=== PATIENT | female | born 1930 | race Hispanic/Latino ===

== ENCOUNTER 2016-12-11 19:58 | Inpatient (IN) | payer MEDICARE ==
--- NOTE | 2016-12-11 20:18 | ED PDOC ---
Arrival/HPI - General Chief Complaint: Trauma Time Seen by Provider: 12/11/16 20:01 Historian: Patient - History of Present Illness Narrative History of Present Illness (Text): 12/11/16 20:13 A 86 year old female presents to the emergency department complaining of right lower back pain after fall. Patient reports falling earlier tonight and approximately 1 week ago, she notes episodes of dizziness prior to falls. Patient denies any other injuries, loss of consciousness, head trauma, headache , neck pain, fever, chills, nausea, vomiting, abdominal pain, chest pain, shortness of breath or any other complaints. PMD: Dr. Alston Time/Duration: Prior to Arrival, 1 week Quality: Other Context: Home Past Medical History - Provider Review Nursing Documentation Reviewed: Yes - Infectious Disease Hx of Infectious Diseases: None - Tetanus Immunization Tetanus Immunization: Unknown - Cardiac Hx Cardiac Disorders: Yes Hx Hypertension: Yes - Pulmonary Hx Respiratory Disorders: No - Neurological Hx Neurological Disorder: Yes Hx Dizziness: Yes (Vertigo) Hx Transient Ischemic Attacks (TIA): Yes Hx Vertigo: Yes - HEENT Hx HEENT Disorder: No Hx Blind: No Hx Cataracts: No Hx Deafness: No Hx Difficulty Chewing: No Hx Epistaxis: No Hx Glaucoma: No Hx Macular Degeneration: No - Renal Hx Renal Disorder: No Hx Dialysis: No Hx Kidney Stones: Yes (Lithotripsy and able to pass also.) - Endocrine/Metabolic Hx Endocrine Disorders: Yes Hx Diabetes Mellitus Type 1: Yes Hx Diabetes Mellitus Type 2: Yes Hx Hypothyroidism: Yes - Hematological/Oncological Hx Blood Disorders: Yes Hx Lymphoma: Yes - Integumentary Hx Dermatological Disorder: No - Musculoskeletal/Rheumatological Hx Falls: No - Gastrointestinal Hx Gastrointestinal Disorders: Yes (Hx of Cholecystectomy; Gallstones; Polypectomy; Hemorrhoidectomy; GI Bleed.) Hx Constipation: Yes Hx Diarrhea: Yes Hx Diverticulitis: Yes Hx Gall Bladder Disease: Yes Hx Gastritis: Yes Hx Gastroesophageal Reflux: Yes Hx Hemorrhoids: Yes - Genitourinary/Gynecological Hx Genitourinary Disorders: Yes Other/Comment: FIBROID - Psychiatric Hx Psychophysiologic Disorder: Yes Hx Anxiety: Yes Hx Depression: Yes Hx Panic Disorder: Yes Hx Post Traumatic Stress Disorder: Yes Hx Substance Use: No - Past Surgical History Past Surgical History: No Previous - Surgical History Hx Appendectomy: Yes Hx Cholecystectomy: Yes Hx Hysterectomy: Yes Other/Comment: benign breast cyst, polypectomy, hemorrhoidectomy,quarterized "a blood vessel" as per pt - Anesthesia Hx Anesthesia: Yes Hx Anesthesia Reactions: No Hx Malignant Hyperthermia: No - Suicidal Assessment Feels Threatened In Home Enviroment: No Family/Social History - Physician Review Nursing Documentation Reviewed: Yes Family/Social History: No Known Family HX Smoking Status: Former Smoker Hx Alcohol Use: No Hx Substance Use: No Hx Substance Use Treatment: No Allergies/Home Meds Allergies/Adverse Reactions: Allergies No Known Allergies Allergy (Verified 12/11/16 20:34) Home Medications: Home Meds Medication Instructions Recorded Confirmed Alprazolam 0.5 mg PO TID 08/23/13 12/11/16 Levothyroxine Sodium 0.088 mg PO QAM 08/23/13 12/11/16 Carvedilol 6.25 mg PO BID 12/28/13 12/11/16 Insulin Glargine,Hum.rec.anlog 30 unit SC DAILY 12/28/13 12/11/16 [Lantus] Methylphenidate HCl [Ritalin] 5 mg PO BID 03/18/14 12/11/16 Bupropion HCl [Bupropion Xl] 150 mg PO QAM 04/04/14 12/11/16 Cyanocobalamin [Vitamin B12 1000 1,000 mcg IM Q30D 04/04/14 12/11/16 mcg/ml Inj] Pantoprazole [Protonix EC Tab] 40 mg PO BID 04/04/14 12/11/16 Allopurinol [Zyloprim] 100 mg PO DAILY 12/11/16 12/11/16 Ergocalciferol [Drisdol 50,000 1 cap PO QWK 12/11/16 12/11/16 Intl Units Cap] Magnesium Oxide [Mag-Ox] 1 tab PO DAILY 12/11/16 12/11/16 Meclizine [Meclizine*] 25 mg PO TID 12/11/16 12/11/16 risperiDONE [RisperDAL Tab] 0.25 mg PO BID 12/11/16 12/11/16 Review of Systems - Physician Review All systems were reviewed & negative as marked: Yes - Review of Systems Constitutional: absent: Fevers, Night Sweats Respiratory: absent: SOB Cardiovascular: absent: Chest Pain Gastrointestinal: absent: Abdominal Pain, Nausea, Vomiting Musculoskeletal: Back Pain. absent: Neck Pain Neurological: Dizziness. absent: Headache Physical Exam Vital Signs Temp Pulse Resp BP Pulse Ox 12/11/16 23:53 92 H 18 106/59 L 99 12/11/16 22:27 88 20 132/74 99 12/11/16 20:26 97.1 F L 90 20 132/65 100 Appearance: Positive for: Well-Appearing, Non-Toxic, Comfortable Pain Distress: None Mental Status: Positive for: Alert and Oriented X 3 - Systems Exam Head: Present: Atraumatic, Normocephalic Pupils: Present: PERRL Extroacular Muscles: Present: EOMI Conjunctiva: Present: Normal Mouth: Present: Moist Mucous Membranes Neck: Present: Normal Range of Motion. No: MIDLINE TENDERNESS, Paraspinal Tenderness Respiratory/Chest: Present: Clear to Auscultation, Good Air Exchange. No: Respiratory Distress, Accessory Muscle Use Cardiovascular: Present: Regular Rate and Rhythm, Normal S1, S2. No: Murmurs Abdomen: Present: Normal Bowel Sounds. No: Tenderness, Distention, Peritoneal Signs Back: Present: Paraspinal Tenderness (Right lower paraspinal tenderness to palpation) Upper Extremity: Present: Normal Inspection, Normal ROM, NORMAL PULSES. No: Cyanosis, Edema Lower Extremity: Present: Normal Inspection, NORMAL PULSES, Normal ROM. No: Edema, CALF TENDERNESS Neurological: Present: GCS=15, CN II-XII Intact, Speech Normal Skin: Present: Warm, Dry, Normal Color. No: Rashes Psychiatric: Present: Alert, Oriented x 3, Normal Insight, Normal Concentration Medical Decision Making ED Course and Treatment: 12/11/16 20:13 Impression: A 86 year old female with right lower back pain after fall. Patient reports dizziness prior to fall. Plan: -- Head CT -- Lumbar spine CT -- Pelvis xray -- Chest xray -- EKG -- Labs -- Urinalysis -- Tylenol -- Reassess and disposition Progress Notes: EKG shows NSR at 88 BPM with RBBB. Interpreted by me. CT Head Without Intravenous Contrast FINDINGS: Brain: No acute intracranial hemorrhage. Age-appropriate periventricular white matter disease. No edema. Ventricles: Age-appropriate ventriculomegaly. Bones: No acute displaced fracture. Sinuses: Unremarkable as visualized. No acute sinusitis. Mastoid air cells: Unremarkable as visualized. No mastoid effusion. IMPRESSION: No acute intracranial hemorrhage, or suspicious mass effect. Dictated and Authenticated by: Yvonne Henry MD 12/11/2016 10:23 PM Eastern Time ([place] & [place]) 12/11/16 22:28 Chest xray: No acute findings, as read by me. CT Lumbar Spine Without Intravenous Contrast FINDINGS: Vertebrae: No acute fracture. Discs/spinal canal/neural foramina: Degenerative disease, most prominent at the level of L5/S1 with osteophyte formation, disc space narrowing, endplate changes and vacuum phenomenon Soft tissues: The gallbladder is absent. Calcified atherosclerotic disease is present. Bulky calcifications within the right kidney. Irregular calcification anterior and medial to the lower pole of the right kidney, a finding of uncertain clinical significance. Colonic diverticulosis, without inflammation. IMPRESSION: Degenerative disease, without acute fracture. Dictated and Authenticated by: Yvonne Henry MD 12/11/2016 11:04 PM Eastern Time ([place] & [place]) 12/11/16 23:08 Pelvix Xray: Negative Xray, no fracture, as read by me. 12/11/16 23:[address] Alston, who agrees with plan for patient to be admitted. Discussed with medical office technology instructor, Urinalysis pending. - Lab Interpretations Lab Results: 12/11/16 20:30 12/11/16 20:30 Lab Results 12/11/16 20:30: Sodium 141, Potassium 4.3, Chloride 99, Carbon Dioxide 28, Anion Gap 18, BUN 21, Creatinine 1.2, Est GFR ( Amer) 52, Est GFR (Non- Af Amer) 43, Random Glucose 299 H, Calcium 9.6, Magnesium 2.6 H, Total Bilirubin 0.8, AST 24, ALT 30, Alkaline Phosphatase 132 H, Lactate Dehydrogenase 670, Total Creatine Kinase 51, Troponin I < 0.01, Total Protein 7.8, Albumin 4.8, Globulin 3.1, Albumin/Globulin Ratio 1.5 12/11/16 20:30: PT 12.5, INR 1.14 H, APTT 29.1 12/11/16 20:30: WBC 25.7 H* D, RBC 4.48, Hgb 13.6, Hct 39.8, MCV 88.8, MCH 30.4 , MCHC 34.2, RDW 15.6 H, Plt Count 167, MPV 12.0 H, Gran % 53.9, Lymph % (Auto) 39.3 H, Citrus % (Auto) 6.3 H, Eos % (Auto) 0.4 L, Baso % (Auto) 0.1, Gran # 13.83 H, Lymph # 10.1 H, Citrus # 1.6 H, Eos # 0.1, Baso # 0.03 12/11/16 20:12: POC Glucose (mg/dL) 293 H I have reviewed the lab results: Yes - RAD Interpretation Radiology Orders: 12/11/16 20:13 HEAD W/O CONTRAST [CT] Stat LUMBAR SPINE W/O CONTRAST [CT] Stat CHEST PORTABLE [RAD] Stat PELVIS ONE VIEW [RAD] Stat - Medication Orders Current Medication Orders: Acetaminophen (Tylenol 325mg Tab) 650 mg PO Q6H PRN PRN Reason: Pain, Mild (1-3) Allopurinol (Zyloprim) 100 mg PO DAILY [facility] Last Admin: 12/12/16 09:28 Dose: 100 mg Alprazolam (Xanax) 0.5 mg PO TID [facility] Last Admin: 12/12/16 18:05 Dose: 0.5 mg Behavioural Document 12/12/16 18:05 [facility] (Rec: 12/12/16 18:05 [id number]) Maintenance Maintenance Dose Yes Nonmedicinal Nonmedicinal Interventions Therapeutic Communication Re-Assess: Reassess Psych Meds Document 12/12/16 19:01 [facility] (Rec: 12/12/16 19:01 [id number][facility] Reassess Psych Med Effective Aspirin (Ecotrin) 81 mg PO DAILY [facility] Last Admin: 12/12/16 09:28 Dose: 81 mg Atorvastatin Calcium (Lipitor) 10 mg PO DIN [facility] Last Admin: 12/12/16 16:43 Dose: 10 mg Bupropion HCl (Wellbutrin Xl) 150 mg PO QAM [facility] Last Admin: 12/12/16 09:28 Dose: 150 mg Carvedilol (Coreg) 6.25 mg PO BID [facility] Last Admin: 12/12/16 18:04 Dose: 6.25 mg MAR Pulse and Blood Pressure Document 12/12/16 18:04 [facility] (Rec: 12/12/16 18:04 [id number]) Pulse Pulse Rate (60-90) 81 Blood Pressure Blood Pressure (100/60-150/90) 135/63 Folic Acid (Folic Acid) 1 mg PO DAILY [facility] Last Admin: 12/12/16 09:28 Dose: 1 mg Cefepime HCl (Maxipime 1gm) 1 gm in 100 mls @ 100 mls/hr IVPB Q24H [facility] PRN Reason: Protocol Last Admin: 12/12/16 12:35 Dose: 100 mls/hr eMAR Start Stop Document 12/12/16 12:35 [facility] (Rec: 12/12/16 12:36 [place] [id number]) Intravenous Solution Start Date 12/12/16 Start Time 12:36 End Date 12/12/16 End time 13:45 Total Infusion Time 69 Sodium Chloride (Sodium Chloride 0.9%) 1,000 mls @ 100 mls/hr IV .Q10H [facility] Last Admin: 12/12/16 23:22 Dose: 100 mls/hr eMAR Start Stop Document 12/12/16 23:22 [facility] (Rec: 12/12/16 23:23 [id number]) Intravenous Solution Start Date 12/12/16 Start Time 23:23 Insulin Detemir (Levemir) 30 unit SC HS [facility] Last Admin: 12/12/16 21:22 Dose: 30 unit MAR Blood Glucose Document 12/12/16 21:22 [facility] (Rec: 12/12/16 21:22 [place] [id number]) Blood Glucose Finger Stick Blood Glucose (70-120) 263 Subcutaneous Administrations Document 12/12/16 21:22 [facility] (Rec: 12/12/16 21:22 [place] [id number]) Charges for Administration # of Subcutaneous Administrations 1 Insulin Human Lispro (Humalog Low) 0 units SC ACHS [facility] PRN Reason: Protocol Last Admin: 12/12/16 21:22 Dose: Not Given Non-Admin Reason: Blood Sugar Parameter MAR Blood Glucose Document 12/12/16 21:22 [facility] (Rec: 12/12/16 21:22 [place] [id number]) Blood Glucose Finger Stick Blood Glucose (70-120) 263 Levothyroxine Sodium (Synthroid) 88 mcg PO QAM [facility] Last Admin: 12/12/16 09:27 Dose: 88 mcg Lidocaine (Lidoderm) 1 ea TD DAILY [facility] Last Admin: 12/12/16 18:05 Dose: 1 ea MAR Transdermal Patch Site Document 12/12/16 18:05 [facility] (Rec: 12/12/16 18:05 [id number]) Transdermal Patch Site Transdermal Patch Site Right Lower Back Re-Assess: MAR Transdermal Patch Removal Document 12/13/16 06:05 [facility] (Rec: 12/13/16 06:11 [facility] [id number]) Transdermal Patch Removal Removal of Transdermal Patch done? Yes Meclizine HCl (Antivert) 25 mg PO TID [facility] Last Admin: 12/12/16 18:05 Dose: 25 mg Pantoprazole Sodium (Protonix Ec Tab) 40 mg PO 0600,1600 [facility] Last Admin: 12/13/16 05:39 Dose: 40 mg Risperidone (Risperdal Tab) 0.25 mg PO BID [facility] PRN Reason: Protocol Last Admin: 12/12/16 18:05 Dose: 0.25 mg Behavioural Document 12/12/16 18:05 [facility] (Rec: 12/12/16 18:05 [id number]) Maintenance Maintenance Dose Yes Re-Assess: Reassess Psych Meds Document 12/12/16 19:01 [facility] (Rec: 12/12/16 19:01 [id number] Reassess Psych Med Effective Discontinued Medications Acetaminophen (Tylenol 325mg Tab) 975 mg PO STAT STA Stop: 12/11/16 20:15 Last Admin: 12/11/16 20:58 Dose: [address] [facility] Pain/Vitals Document 12/11/16 20:58 J[facility] (Rec: 12/11/16 20:58 JOL [id number]) Pain Reassessment Is This A Pain ReAssessment? No Sleep Is patient sleeping during reassessment? No Presence of Pain Presence of Pain Yes Pain Scale Used Pain Scale Used Numeric Location Upper or Lower Lower Pain Location Body Site Back Intensity 9 Scale Used Numeric Re-Assess: [facility] Pain/Vitals Document 12/11/16 21:58 ST (Rec: 12/12/16 00:[address] [facility] [id number]) Pain Reassessment Is This A Pain ReAssessment? Yes Sleep Is patient sleeping during reassessment? No Presence of Pain Presence of Pain Yes Pain Scale Used Pain Scale Used Numeric Location Pain Location Body Site Back Vancomycin HCl (Vancomycin 1gm) 1 gm in 250 mls @ 167 mls/hr IVPB Q12H [facility] PRN Reason: Protocol Last Admin: 12/12/16 05:25 Dose: 167 mls/hr eMAR Start Stop Document 12/12/16 05:25 ST (Rec: 12/12/16 05:25 ST [id number]) Intravenous Solution Start Date 12/12/16 Start Time 05:25 End Date 12/12/16 End time 07:00 Total Infusion Time 95 - Scribe Statement The provider has reviewed the documentation as recorded by the Mahadibdimitri Christensen Provider Scribe Attestation: All medical record entries made by the Scribe were at my direction and personally dictated by me. I have reviewed the chart and agree that the record accurately reflects my personal performance of the history, physical exam, medical decision making, and the department course for this patient. I have also personally directed, reviewed, and agree with the discharge instructions and disposition. Disposition/Present on Arrival - Present on Arrival Any Indicators Present on Arrival: No History of DVT/PE: No History of Uncontrolled Diabetes: Yes Urinary Catheter: No History of Decub. Ulcer: No History Surgical Site Infection Following: None - Disposition Have Diagnosis and Disposition been Completed?: Yes Diagnosis: Syncope, Leukocytosis Disposition: HOSPITALIZED Disposition Time: 12:00 Condition: FAIR
[2016-12-11 20:41] LABS: BASO # 0.03 K/mm3 (0.0-2.0); BASO % 0.1 % (0.0-3.0); EOS # 0.1 (0.0-0.7); EOS % 0.4 % (1.5-5.0); GRAN # 13.83 (1.4-6.5); GRAN % 53.9 % (50.0-68.0); HEMATOCRIT 39.8 % (36.0-48.0); LYMPH # 10.1 (1.2-3.4); LYMPH % 39.3 % (22.0-35.0); MEAN CELL VOLUME 88.8 fl (80.0-105.0); MEAN CORPUSCULAR HEMOGLOBIN 30.4 pg (25.0-35.0); MEAN CORPUSCULAR HGB CONC 34.2 g/dl (31.0-37.0); MONO # 1.6 (0.1-0.6); MONO % 6.3 % (1.0-6.0); RED CELL DISTRIBUTION WIDTH 15.6 % (11.5-14.5)
[2016-12-11 20:48] LABS: WHITE BLOOD COUNT 25.7 10^3/ul (4.5-11.0)
[2016-12-11 20:49] LABS: INR 1.14 (0.93-1.08); PARTIAL THROMBOPLASTIN TIME 29.1 Seconds (25.1-36.5)
[2016-12-11 20:53] LABS: ALB/GLOB RATIO 1.5 (1.1-1.8); ALKALINE PHOSPHATASE 132 U/L (38-126); ALT/SGPT 30 U/L (7-56); AST/SGOT 24 U/L (14-36); BILIRUBIN,TOTAL 0.8 mg/dL (0.2-1.3); BLOOD UREA NITROGEN 21 mg/dL (7-21); CALCIUM 9.6 mg/dL (8.4-10.5); CARBON DIOXIDE 28 mmol/L (21-33); CHLORIDE 99 mmol/L (98-107); GFR AFRICAN-AMERICAN 52; GLUCOSE,RANDOM 299 mg/dL (70-110); MAGNESIUM 2.6 mg/dL (1.7-2.2); POTASSIUM 4.3 mmol/L (3.6-5.0); SODIUM 141 mmol/L (132-148); TOTAL PROTEIN 7.8 g/dL (5.8-8.3)
[2016-12-11 21:10] LABS: TROPONIN I < 0.01 ng/mL
--- NOTE | 2016-12-11 22:23 | CT ---
EXAM: CT Head Without Intravenous Contrast CLINICAL HISTORY: 86 years old, female; Injury or trauma; Fall; Initial encounter; Concussion / head injury TECHNIQUE: Axial computed tomography images of the head/brain without intravenous contrast. All CT scans at this facility use one or more dose reduction techniques, viz.: automated exposure control; ma/kV adjustment per patient size (including targeted exams where dose is matched to indication; i.e. head); or iterative reconstruction technique. COMPARISON: No relevant prior studies available. FINDINGS: Brain: No acute intracranial hemorrhage. Age-appropriate periventricular white matter disease. No edema. Ventricles: Age-appropriate ventriculomegaly. Bones: No acute displaced fracture. Sinuses: Unremarkable as visualized. No acute sinusitis. Mastoid air cells: Unremarkable as visualized. No mastoid effusion. IMPRESSION: No acute intracranial hemorrhage, or suspicious mass effect.
--- NOTE | 2016-12-11 23:05 | CT ---
EXAM: CT Lumbar Spine Without Intravenous Contrast CLINICAL HISTORY: 86 years old, female; Injury or trauma; Fall; Initial encounter; Abrasion TECHNIQUE: Axial computed tomography images of the lumbar spine without intravenous contrast. All CT scans at this facility use one or more dose reduction techniques, viz.: automated exposure control; ma/kV adjustment per patient size (including targeted exams where dose is matched to indication; i.e. head); or iterative reconstruction technique. Coronal and sagittal reformatted images were created and reviewed. COMPARISON: No relevant prior studies available. FINDINGS: Vertebrae: No acute fracture. Discs/spinal canal/neural foramina: Degenerative disease, most prominent at the level of L5/S1 with osteophyte formation, disc space narrowing, endplate changes and vacuum phenomenon Soft tissues: The gallbladder is absent. Calcified atherosclerotic disease is present. Bulky calcifications within the right kidney. Irregular calcification anterior and medial to the lower pole of the right kidney, a finding of uncertain clinical significance. Colonic diverticulosis, without inflammation. IMPRESSION: Degenerative disease, without acute fracture.
--- NOTE | 2016-12-12 00:37 | CP.PCM.HP ---
<Yovani Christianson - Last Filed: 12/12/16 04:44> History of Present Illness - History of Present Illness History of Present Illness: CC: Syncope Pt is an 86 yo female with PMH as below presents with c/o of syncopal event. Pt states that this afternoon while walking to restroom she had syncopal event and when came to found herself on the floor. Pt does not believe she hit her head when falling and thinks that she was out for only a brief period of time. Pt states that her legs had been shaky, dizzy, and nauseous all day as if the room was spinning with 1 episode of NBNB vomiting. Pt states that she has a h/o vertigo and tends to get dizzy easily. Pt reports last occurrence of possible pre-syncopal event was 1 week ago while walking down stairs. Pt states that she may have endured trauma to her right flank as that is still sore today. Pt states history of hypotension and anemia as a possible source of syncope. Of note, pt states that she previously had a period of 10 days without a BM, but yesterday experienced diarrhea, in which she took imodium for. Pt denied CP, SOB , abdominal pain, fever, chills, night sweats, recent weight loss, VAZQUEZ, fatigue, or dysuria. PMD: Gamaliel PMH: Diastolic CHF, IDDM, HLD, HTN, hypothyroidism, GI bleed, diverticulitis, GERD, degenerative joint disease, vertigo, depression, anxiety, lymphoma, anemia Surg: Cholecystectomy, hysterectomy All: NKDA SH: Denied tobacco, EtOH, or illicit drug use. Lives at home with daughter. FHx: DM, CHF Meds: Reviewed as per MAR Present on Admission - Present on Admission Any Indicators Present on Admission: No Review of Systems - Review of Systems Review of Systems: 12 point ROS reviewed and is negative other than what is stated in HPI. Past Patient History - Infectious Disease Hx of Infectious Diseases: None - Tetanus Immunizations Tetanus Immunization: Unknown - Past Medical History & Family History Past Medical History?: Yes - Past Social History Smoking Status: Former Smoker - CARDIAC Hx Cardiac Disorders: Yes Hx Hypertension: Yes - PULMONARY Hx Respiratory Disorders: No - NEUROLOGICAL Hx Neurological Disorder: Yes Hx Dizziness: Yes (Vertigo) Hx Transient Ischemic Attacks (TIA): Yes Hx Vertigo: Yes - HEENT Hx HEENT Problems: No Hx Blind: No Hx Cataracts: No Hx Deafness: No Hx Difficulty Chewing: No Hx Epistaxis: No Hx Glaucoma: No Hx Macular Degeneration: No - RENAL Hx Chronic Kidney Disease: No Hx Dialysis: No Hx Kidney Stones: Yes (Lithotripsy and able to pass also.) - ENDOCRINE/METABOLIC Hx Endocrine Disorders: Yes Hx Diabetes Mellitus Type 1: Yes Hx Diabetes Mellitus Type 2: Yes Hx Hypothyroidism: Yes - HEMATOLOGICAL/ONCOLOGICAL Hx Blood Disorders: Yes - INTEGUMENTARY Hx Dermatological Problems: No - MUSCULOSKELETAL/RHEUMATOLOGICAL Hx Falls: No - GASTROINTESTINAL Hx Gastrointestinal Disorders: Yes (Hx of Cholecystectomy; Gallstones; Polypectomy; Hemorrhoidectomy; GI Bleed.) Hx Constipation: Yes Hx Diarrhea: Yes Hx Diverticulitis: Yes Hx Gall Bladder Disease: Yes Hx Gastritis: Yes Hx Gastroesophageal Reflux: Yes Hx Hemorrhoids: Yes - GENITOURINARY/GYNECOLOGICAL Hx Genitourinary Disorders: Yes Other/Comment: FIBROID - PSYCHIATRIC Hx Psychophysiologic Disorder: Yes Hx Anxiety: Yes Hx Depression: Yes Hx Panic Symptoms: Yes Hx Post Traumatic Stress Disorder: Yes Hx Substance Use: No - SURGICAL HISTORY Hx Appendectomy: Yes Hx Cholecystectomy: Yes Hx Hysterectomy: Yes Other/Comment: benign breast cyst, polypectomy, hemorrhoidectomy,quarterized "a blood vessel" as per pt - ANESTHESIA Hx Anesthesia: Yes Hx Anesthesia Reactions: No Hx Malignant Hyperthermia: No Meds Allergies/Adverse Reactions: Allergies Allergy/AdvReac Type Severity Reaction Status Date / Time No Known Allergies Allergy Verified 12/15/16 20:43 Physical Exam - Constitutional Appears: No Acute Distress - Head Exam Head Exam: ATRAUMATIC, NORMOCEPHALIC - Eye Exam Eye Exam: EOMI, Nystagmus (Katelyn-Hallpike Negative), PERRL - ENT Exam ENT Exam: Mucous Membranes Dry - Neck Exam Neck exam: Positive for: Full Rom. Negative for: Lymphadenopathy, Tenderness, Thyromegaly - Respiratory Exam Respiratory Exam: Clear to Auscultation Bilateral. absent: Rales, Rhonchi, Wheezes - Cardiovascular Exam Cardiovascular Exam: RRR, +S1, +S2. absent: Diastolic murmur, Gallop, Rubs, Systolic Murmur - GI/Abdominal Exam GI & Abdominal Exam: Distended (suprapubic), Soft, Tenderness (RLQ and suprapubic). absent: Guarding, Rebound, Rigid - Extremities Exam Extremities exam: Positive for: normal inspection. Negative for: joint swelling , pedal edema, tenderness - Neurological Exam Neurological exam: Alert, CN II-XII Intact, Oriented x3, Reflexes Normal - Psychiatric Exam Psychiatric exam: Normal Affect, Normal Mood - Skin Skin Exam: Dry, Intact, Pallor, Warm Results - Vital Signs Recent Vital Signs: Last Vital Signs Temp 97.1 F L 12/11/16 20:26 Pulse 92 H 12/11/16 23:53 Resp 18 12/11/16 23:53 BP 106/59 L 12/11/16 23:53 Pulse Ox 99 12/11/16 23:53 - Labs Result Diagrams: 12/11/16 20:30 12/11/16 20:30 Labs: Laboratory Results - last 24 hr 12/11/16 12/11/16 12/11/16 20:12 20:30 20:30 WBC 25.7 H* D RBC 4.48 Hgb 13.6 Hct 39.8 MCV 88.8 MCH 30.4 MCHC 34.2 RDW 15.6 H Plt Count 167 MPV 12.0 H Gran % 53.9 Lymph % (Auto) 39.3 H [place] % (Auto) 6.3 H Eos % (Auto) 0.4 L Baso % (Auto) 0.1 Gran # 13.83 H Lymph # 10.1 H [place] # 1.6 H Eos # 0.1 Baso # 0.03 PT 12.5 INR 1.14 H APTT 29.1 Sodium Potassium Chloride Carbon Dioxide Anion Gap BUN Creatinine Est GFR ( Amer) Est GFR (Non-Af Amer) POC Glucose (mg/dL) 293 H Random Glucose Calcium Magnesium Total Bilirubin AST ALT Alkaline Phosphatase Lactate Dehydrogenase Total Creatine Kinase Troponin I Total Protein Albumin Globulin Albumin/Globulin Ratio 12/11/16 20:30 WBC RBC Hgb Hct MCV MCH MCHC RDW Plt Count MPV Gran % Lymph % (Auto) [place] % (Auto) Eos % (Auto) Baso % (Auto) Gran # Lymph # [place] # Eos # Baso # PT INR APTT Sodium 141 Potassium 4.3 Chloride 99 Carbon Dioxide 28 Anion Gap 18 BUN 21 Creatinine 1.2 Est GFR ( Amer) 52 Est GFR (Non-Af Amer) 43 POC Glucose (mg/dL) Random Glucose 299 H Calcium 9.6 Magnesium 2.6 H Total Bilirubin 0.8 AST 24 ALT 30 Alkaline Phosphatase 132 H Lactate Dehydrogenase 670 Total Creatine Kinase 51 Troponin I < 0.01 Total Protein 7.8 Albumin 4.8 Globulin 3.1 Albumin/Globulin Ratio 1.5 Assessment & Plan - Assessment and Plan (Free Text) Assessment: 86 yo female with PMH of diastolic CHF, IDDM, HLD, HTN, hypothyroidism, GI bleed , diverticulitis, GERD, degenerative joint disease, vertigo, depression, anxiety , lymphoma, and anemia will be admitted for evaluation and treatment for syncope. Plan: 1. Syncope - Head CT negative for acute bleed - Lumbar CT showed degenerative disease, but no fractures - EKG showed RBBB and LVH (new since last EKG from 2014) - Troponin negative x1, f/u trend - F/u Pelvic X-ray and CXR - F/u Echo, carotid US, brain MRI, orthostatics - Neuro consulted - Cardio consulted - Psych cosulted - PT consulted - NS at 100 - Neurochecks, fall precautions 2. Leukocytosis - WBC 25.7 - Possibly due to h/o lymphoma - F/u UA, blood cultures - Vancomycin and Cefepime 3. Abdominal Pain - F/u abdominal CT - F/u c. diff 4. IDDM - Glucose 299 on admission - F/u A1C, UA - Levemir 30 u HS - ISS low - Accuchecks ACHS 5. CHF - Cont home meds: Coreg, Lasix, ASA - F/u Echo 6. Vertigo - Cont home med: Antivert 7. H/O HLD - Cont home med: Lipitor 8. H/O Anxiety/Depression - Cont home meds: Xanax, Wellbutrin, Risperidone 9. H/O Hypothyroidism - Cont home med: Synthroid - F/u TSH GI/DVT PPx - Protonix - SCDs Pt discussed in detail with Dr. Alston. Anderson Christianson, PGY1 <Amadou Alston U - Last Filed: 01/19/17 15:57> Results - Vital Signs Recent Vital Signs: Last Vital Signs Temp 97.7 F 12/14/16 17:21 Pulse 81 12/14/16 17:21 Resp 20 12/14/16 17:21 BP 166/100 H 12/14/16 17:21 Pulse Ox 95 12/14/16 17:21 - Labs Result Diagrams: 12/14/16 07:30 12/14/16 07:30 Attending/Attestation - Attestation I have personally seen and examined this patient.: Yes I have fully participated in the care of the patient.: Yes I have reviewed all pertinent clinical information: Yes Notes (Text): PLEASE ALSO SEE MY DICTATED NOTES
[2016-12-12 03:18] LABS: TROPONIN I < 0.01 ng/mL
[2016-12-12] MEDS ORDERED: Sodium Chloride 0.9% 1,000 ML IV SCH (04:30)
[2016-12-12] MEDS ORDERED: Vancomycin 1gm in NS 250ml 1 GM/250 ML BAG IVPB SCH ×2 (04:30→04:45)
[2016-12-12] MEDS: Sodium Chloride 0.9% 1,000 ML IV SCH ×2 (05:15→23:22)
[2016-12-12] MEDS: Pantoprazole 40 mg EC Tab PO SCH ×2 (05:16→16:43)
[2016-12-12 06:57] LABS: HEMATOCRIT 35.2 % (36.0-48.0); MEAN CELL VOLUME 89.1 fl (80.0-105.0); MEAN CORPUSCULAR HEMOGLOBIN 29.4 pg (25.0-35.0); MEAN PLATELET VOLUME 12.1 fl (7.0-11.0); RED CELL DISTRIBUTION WIDTH 15.9 % (11.5-14.5); WHITE BLOOD COUNT 22.7 10^3/ul (4.5-11.0)
[2016-12-12] MEDS ORDERED: Barium Sulfate Susp 2.1% w/v, 2.0% w/w 450 mL Bottle PO ONE (07:12)
[2016-12-12 07:19] LABS: ALB/GLOB RATIO 1.6 (1.1-1.8); BILIRUBIN,TOTAL 0.4 mg/dL (0.2-1.3); CALCIUM 8.8 mg/dL (8.4-10.5); MAGNESIUM 2.6 mg/dL (1.7-2.2); PHOSPHOROUS 4.4 mg/dL (2.5-4.5); POTASSIUM 4.3 mmol/L (3.6-5.0); TOTAL PROTEIN 6.7 g/dL (5.8-8.3)
[2016-12-12 07:42] VITALS: BMI 24.2
--- NOTE | 2016-12-12 07:47 | RAD ---
HISTORY: fall COMPARISON: Portable chest 05/20/2014. FINDINGS: LUNGS: History volume appears somewhat diminished with crowding of the bronchovascular markings identified. No definite alveolitis. PLEURA: No significant pleural effusion identified, no pneumothorax apparent. CARDIOVASCULAR: Normal. OSSEOUS STRUCTURES: No significant abnormalities. VISUALIZED UPPER ABDOMEN: Normal. OTHER FINDINGS: None. IMPRESSION: Diminished history volume crowds the bronchovascular markings the bilateral lung bases. No acute infiltrate or pleural effusion identified. No interval cardiopulmonary disease acutely evident.
[2016-12-12 08:02] LABS: ALB/GLOB RATIO 1.6 (1.1-1.8); ALKALINE PHOSPHATASE 104 U/L (38-126); ALT/SGPT 30 U/L (7-56); AST/SGOT 14 U/L (14-36); BILIRUBIN,DIRECT 0.3 mg/dL (0.0-0.4); BILIRUBIN,TOTAL 0.4 mg/dL (0.2-1.3); PHOSPHOROUS 4.5 mg/dL (2.5-4.5); TOTAL PROTEIN 6.3 g/dL (5.8-8.3)
[2016-12-12 08:13] LABS: TROPONIN I < 0.01 ng/mL
--- NOTE | 2016-12-12 08:32 | RAD ---
PROCEDURE: Radiographs of the pelvis. HISTORY: fall COMPARISON: None. FINDINGS: BONES: Pelvic Bones: Unremarkable. Hips: Grossly unremarkable. JOINTS: Sacroiliac Joints: Unremarkable. Pubic Symphysis: Unremarkable. OTHER FINDINGS: None. IMPRESSION: Unremarkable radiographs of the pelvis.
[2016-12-12 08:43] LABS: FREE T4 1.32 ng/dL (0.78-2.19); T4 9.6 ug/dL (5.5-11.0)
[2016-12-12] MEDS: Insulin Lispro (humaLOG) LOW Coverage SC SCH ×4 (08:44→21:22)
[2016-12-12] MEDS: Levothyroxine 88 MCG TAB PO SCH (09:27)
[2016-12-12] MEDS: buPROPion 150 mg/24 Hours XL Tab PO SCH (09:28)
[2016-12-12] MEDS ORDERED: Cefepime 1gm in NS 100ml 1 GM/100 ML BAG IVPB SCH (10:00)
[2016-12-12] MEDS ORDERED: Magnesium Oxide 400 mg Tab UD PO SCH (10:00)
--- NOTE | 2016-12-12 10:24 | CON ---
DATE: 12/12/2016 CARDIOLOGY CONSULTATION HISTORY OF PRESENT ILLNESS: The patient is an 86-year-old woman who suffers from chronic vertigo. She complained of dizziness and found herself on the floor. She sustained some trauma to her lower back. There was no evidence for head trauma. PAST MEDICAL HISTORY: Notable for diabetes mellitus, hypertension. There is a remote history of diastolic CHF. Her last echocardiogram was in 2013, which showed normal LV function. No previous heart disease. No shortness of breath. No angina. SOCIAL HISTORY: The patient does not smoke nor drink alcohol. REVIEW OF SYSTEMS: A 14-point review of systems was reviewed in detail. No cardiac symptomatology is noted other than diffuse weakness. PHYSICAL EXAMINATION: VITAL SIGNS: On physical exam, blood pressure is 113/65 without orthostatic changes, heart rate is in the 80s, normal sinus rhythm. NECK: Negative JVD. LUNGS: Without rales. HEART: Reveals S1 and S2. EXTREMITIES: Without edema. LABORATORIES: Include an EKG that shows normal sinus rhythm with a right bundle branch block and a left anterior hemiblock. The white count is up to 22,000. Chemistries: Troponins are negative x2. BUN and creatinine are 27 and 1.5. The glucose is 207. IMPRESSION: 1. Chronic vertigo. 2. Syncope. 3. No cardiac arrhythmias noted. 4. No evidence for aortic stenosis. 5. Diabetes mellitus. 6. Hypertension. Given these findings, the patient is scheduled for an MRI today. We will order an echocardiogram to evaluate her LV function and rule out valvular heart disease, which is not apparent on physical exam. Elbert Lagunas MD
--- NOTE | 2016-12-12 11:07 | MRI ---
PROCEDURE: MRI BRAIN WITHOUT CONTRAST HISTORY: syncope COMPARISON: Brain MRI 11/10/[address] 12/11/2016. TECHNIQUE: Multiplanar, multisequence MR images of the brain were obtained without intravenous contrast enhancement. FINDINGS: HEMORRHAGE: None DWI: No evidence of an acute or early subacute infarction. BRAIN PARENCHYMA: Diffuse cerebral atrophy chronic microangiopathy are reiterated. No mass is identified or suspicious extra-axial fluid collection in the midline brain and appears diffusely unremarkable nevertheless. Posterior fossa contents remain unremarkable including the brainstem. No suspicious renal findings are appreciated bilaterally. Small chronic lacune is again question the left thalamus. 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 VENTRICLES: Unremarkable. No hydrocephalus. CRANIUM: Unremarkable. ORBITS: Grossly unremarkable. PARANASAL SINUSES/MASTOIDS: Prominent left mastoid effusions are identified and mild right mastoid effusions are noted as well. VASCULAR SYSTEM: Skull base flow voids intact. OTHER FINDINGS: None. IMPRESSION: Stable age related neuro degenerative changes are identified once again which are not simply changed in the interval. Chronic lacune is question of the left thalamus. No acute intracranial findings are identified grossly. Questionable arachnoid cyst suprasellar cistern/upper to mid sella. Prominent left mastoid effusions. Limited right mastoid effusion slightly increased in the interval.
--- NOTE | 2016-12-12 11:30 | RAD ---
PROCEDURE: Radiographs of the pelvis and bilateral hips HISTORY: FALL/PAIN COMPARISON: None. FINDINGS: BONES: Pelvis: Not completely visualize Right hip:Unremarkable. Left hip:Unremarkable. JOINTS: Right hip: Unremarkable. Left hip: Unremarkable. Sacroiliac Joints: Unremarkable. Pubic symphysis: Unremarkable. SOFT TISSUES: Normal. OTHER FINDINGS: None. IMPRESSION: Unremarkable radiographs of the hips and pelvis.
--- NOTE | 2016-12-12 11:30 | CON ---
NEUROLOGY CONSULTATION REPORT REASON FOR CONSULTATION: Syncope. HISTORY OF PRESENT ILLNESS: The patient is an 86-year-old female, who has been asked for evaluation of syncope. The patient says that yesterday afternoon while walking to restroom, she felt dizzy and after that she fell down and passed out. She did not hit her head. She denied any chest pain or palpitation prior to passing out. The patient has history of vertigo, on and off, however, she does not usually pass out. About 1 week ago, she had an episode of almost passing out. She denies any focal weakness in the arms or legs. Denies any loss of vision associated with episode of passing out. Denies any other complaints. REVIEW OF SYSTEMS: Denies any headache, chest pain, shortness of breath, abdominal pain, constipation, diarrhea, dysuria, pyuria, cough, sputum production, hallucination or skin rash. PAST MEDICAL HISTORY: Includes hypertension, diabetes mellitus, congestive heart failure, GI bleed, GERD, degenerative joint disease, depression and lymphoma. PAST SURGICAL HISTORY: Include cholecystectomy and hysterectomy. MEDICATIONS AT HOME: Included Protonix, vitamin B12, Coreg, allopurinol, Lasix, Lantus, aspirin, risperidone, folic acid, bupropion, meclizine, pravastatin, levothyroxine, Xanax and Ritalin. ALLERGIES: NO KNOWN DRUG ALLERGIES. SOCIAL HISTORY: She is a former smoker. Denies use of alcohol or illicit drugs. FAMILY HISTORY: Reviewed and noncontributory to the case. PHYSICAL EXAMINATION: GENERAL: The patient is an elderly female, lying in bed, in no acute distress. VITAL SIGNS: Her blood pressure is 113/65, heart rate is 82 per minute. Her lying blood pressure is 113/65 and sitting blood pressure is 121/65 and standing blood pressure is 117/65. Her temperature is 98.1 and she is breathing at the rate of 16 per minute. HEENT: Normocephalic, atraumatic. NECK: Supple. There are no carotid bruits. LUNGS: Clear. CVS: S1 and S2 audible. No murmur. ABDOMEN: Soft, nontender. Bowel sounds are present. NEUROLOGY: Mental status: The patient is awake, alert, oriented to time, place, person. Her speech is fluent. Naming and repetition is normal. Memory and cognition are intact. Cranial Nerve Examination: Pupils are 3 mm bilaterally reactive to light. Visual cabral are full. Extraocular movements are intact. There is no facial asymmetry. The palate is upgoing bilaterally, and tongue is midline. Motor Examination: Tone is normal. Power is 5/5 bilaterally in all extremities. Reflexes are 1+ and symmetrical with absent ankle jerk. Plantars downgoing bilaterally. Cerebellar Examination: [id number] shows no dysmetria. Sensory examination is intact to soft touch and pinprick. Gait is deferred at the moment. The patient usually walks with the help of a walker. LABORATORY DATA: Reviewed; shows WBC of 22.7, hemoglobin of 11.6, hematocrit of 35.2, and platelets of 551. Her INR is 1.14. Sodium is 141, potassium 4.3, chloride of 101, carbon dioxide 27, BUN of 27, creatinine of 1.5, and glucose of 207. Her T4 and TSH are within normal limits. She has CT scan of the head done, which showed no acute pathology. IMPRESSION: 1. Syncope, rule out seizure versus cardiac arrhythmia. 2. Leukocytosis, which is likely secondary to her underlying lymphoma. 3. Gait dysfunction. 4. History of dizziness. RECOMMENDATIONS: 1. The patient will have MRI of the brain without contrast. 2. The patient also will have an electroencephalogram. 3. The patient will have physical therapy for gait imbalance. 4. The patient is currently on meclizine 25 mg three times a day, which may be continued. 5. Please continue supportive care and the treatment. Thank you for the opportunity to participate in the care of this patient. Yareli Velazquez MD
[2016-12-12 11:33] LABS: URIC ACID 5.2 mg/dL (2.5-6.2)
[2016-12-12] MEDS: Cefepime 1gm in NS 100ml 1 GM/100 ML BAG IVPB SCH (12:35)
--- NOTE | 2016-12-12 13:31 | US ---
PROCEDURE: Bilateral carotid artery duplex ultrasound HISTORY: Carotid stenosis syncope. PHYSICIAN(S): Elbert Pickens MD. TECHNIQUE: Duplex sonography and color-flow Doppler were used to evaluate the carotid bifurcations and limited segments of the vertebral arteries bilaterally. FINDINGS: There is mild smooth heterogeneous plaque noted at the carotid bifurcations bilaterally. The peak systolic velocity in the proximal right internal carotid artery is 67 cm/sec. This corresponds to a 20 to 39% proximal right ICA stenosis. Normal systolic velocities are noted in the proximal right external carotid artery. There is antegrade flow in the right vertebral artery. The peak systolic velocity in the proximal left internal carotid artery is 89 cm/sec. This corresponds to a 20 to 39% proximal left ICA stenosis. Normal systolic velocities are noted in the proximal left external carotid artery. There is antegrade flow in the left vertebral artery. IMPRESSION: 1. Bilateral 20-39% proximal ICA stenoses. 2. Antegrade flow in both vertebral arteries.
--- NOTE | 2016-12-12 13:33 | HP ---
HISTORY OF PRESENT ILLNESS: The patient is an 86-year-old female who presented to the emergency room in the evening hours of December 11, presented via the [facility]. The patient had recurrent falls, became dizzy and fell and had loss of consciousness and syncopal event. According to the triage note, above symptoms were documented. According to the ER physician, the patient presented complaining of right-sided lower back pain after fall. The patient stated that she fell earlier today and a week ago also. She was having increasing episodes of dizziness prior to fall. The patient also stated that she had a loss of consciousness.. The patient stated that she was walking to the restroom and had passed out and became very dizzy and found herself on the floor. The patient does not recall if she hit her head when falling. She stated that she may be out for a brief period of time. She also reports weakness and shakiness of the legs with dizziness and nausea, room spinning. The patient also reports increasing dizziness. The patient also had similar sort of symptoms a week ago, but denies any loss of consciousness at that time. The patient also stated that she probably hit the right side of the abdomen a week ago and still complaining of right-sided flank pain.. The patient also reports some questionable constipation, but had a bowel movement yesterday after taking some medications. CODE STATUS: Full code. LIVING WILL, ADVANCE DIRECTIVE: None. ALLERGIES: NONE. Height is 5 feet 4 inches. Weight is 149. BMI is 25.6. MENSTRUAL HISTORY: Postmenopausal. PSYCHIATRIC HISTORY: Positive for anxiety, depression. Questionable bipolar disorder. HOME MEDICATION: 1. Xanax 0.5 mg three times a day. 2. Wellbutrin 150 mg daily. 3. Coreg 6.5 mg twice a day. 4. Drisdol 50,000 weekly. 5. Ecotrin 81 mg daily. 6. Folic acid 1 mg daily. 7. Lantus 30 units daily. 8. Lasix 40 mg p.r.n. for leg swelling and shortness of breath. 9. Synthroid 88 mcg daily. 10. Magnesium oxide 400 mg daily. 11. Meclizine 25 mg three times a day. 12. Pravachol 40 mg daily. 13. Protonix 40 mg as needed. 14. Risperdal 0.25 b.i.d. 15. Ritalin 5 mg twice a day. 16. Vitamin B12 of 1000 mcg monthly. 17. Allopurinol 100 mg daily. SOCIAL HISTORY: Negative for substance abuse. Negative for alcohol. Positive for former smoker, quit 5 years ago, used to smoke 1 pack a day for 50+ years. PAST MEDICAL AND SURGICAL HISTORY: History of anxiety; history of depression; history of hypertension; history of hyperlipidemia; history of insulin-requiring diabetes mellitus; history of hypothyroidism; history of hypomagnesemia; history of vertigo; history of dyslipidemia; history of vitamin B12 deficiency; history of hyperuricemia; history of cholecystectomy; history of cholelithiasis; history of hemorrhoidectomy; history of polypectomy; history of diverticulosis, diverticulitis; history of appendectomy; history of constipation; history of lithotripsy and kidney stone; history of gait dysfunction; history of questionable TIA; history of dizziness; history of vertigo; history of depression, anxiety, panic disorder; history of questionable posttraumatic stress disorder; history of for hysterectomy; history of benign breast cyst; questionable history of lymphoma and leukemia. The patient's past medical history is significant for history of tubular adenomatous polyp; history of cecal focal cryptitis. The patient's past medical history is significant for history of chronic gastritis; history of endoscopy, colonoscopy in 03/2014; history of monoclonal lymphocytosis, history of B-cell lymphoma and marginal zone lymphoma; history of diabetic neuropathy. The patient's past medical history is also significant for history of small anterior pericardial effusion, history of normal LV function with ejection fraction of 57%, history of left anterior hemiblock, history of age-indeterminate inferior infarct, history of left ventricular hypertrophy. The patient's past medical history is significant for history of severe symptomatic anemia, history of blood transfusion, history of increased anion gap metabolic acidosis, history of pulmonary hypertension and diastolic right-sided congestive heart failure, history of hypertensive cardiovascular disease, type 2 bipolar disorder, history of hypokalemia, history of thrombocytopenia, history of clonal B-cell lymphoma, history of gait dysfunction. Past medical history is significant for diastolic right-sided congestive heart failure; history of gastritis; history of type 2 insulin requiring diabetes mellitus; history of hemorrhoidectomy; gastrointestinal bleeding; gastroesophageal reflux; history of lithotripsy; history of hysterectomy; history of iron-deficiency anemia, multiple transfusion; history of periodic gastrointestinal bleeding; history of gastric fundic hyperplastic polyp; history of EGD and colonoscopy done in 2014; history of gastrointestinal bleeding secondary to arteriovenous malformation and acute blood loss anemia; history of constipation, fecal retention, fecal stasis; history of hypertriglyceridemia, hyperlipidemia; history of fibroid breast cyst removal; history of macular degeneration; history of tubular adenoma of the sigmoid colon; 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; history of diabetic neuropathy; history of refractory constipation; history of subpleural pulmonary nodule; 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; history of duodenal bulb submucosal nodule; 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; history of vertebrobasilar transient ischemic infarct; history of proximal bilateral internal carotid artery stenosis; history of maxillary sinus polyp; history of questionable dysarthria; history of chronic microvascular ischemic disease of the brain; history of fecal impaction; history of hydronephrosis; history of gastric and duodenal angiodysplasia; history of Escherichia coli bacteremia urinary tract infection; history of right-sided nephrolithiasis; history of right ureteral calculus; history of right retrograde ureteral pyelogram; history of left retrograde pyelogram; history of pneumonia; history of right ureteral obstructing nephrolithiasis; history of microalbuminuria; history of Streptococcus viridans urinary tract infection; history of hypomagnesemia; severe symptomatic anemia requiring packed red blood cell transfusion; history of probable hyperventilation syndrome causing episodic slurred speech and anxiety. OCCUPATIONAL HISTORY: Disabled. PHYSICAL EXAMINATION: GENERAL: The patient was seen and evaluated in the ER by the ER physician and the medical dir. The patient was found to be alert, awake and oriented x3. HEENT: The patient's head examination is normocephalic and atraumatic. HEENT examination shows no nystagmus. No neck rigidity. No lymphadenopathy. NECK EXAMINATION: Shows no neck rigidity, but there was some paraspinal tenderness noted. CHEST EXAMINATION: Kyphosis. LUNGS EXAMINATION: Shows no rales, crackles or wheezing. CARDIOVASCULAR: S1 and S2, regular rhythm. Questionable soft systolic murmur at left sternal border, right second intercostal space. ABDOMEN: Soft. Positive bowel sounds. Positive left paraumbilical, positive left flank and right-sided paraspinal tenderness noted. Abdominal examination also shows some suprapubic tenderness and fullness. EXTREMITIES: Shows no cyanosis, no edema. No calf tenderness. NEUROLOGICALLY: The patient is alert, awake, oriented x3. Cranial nerves II-XII intact. Speech was within normal limit. SKIN: Warm and dry. DIAGNOSTIC DATA: WBC 25.7, hemoglobin/hematocrit 13.6/39.8, platelet 167, lymphocytes 39. Repeat CBC shows a WBC of 22.7, hemoglobin/hematocrit 11.6/35.2, platelets 151. PT 12.5 and 29.1 PTT. Chemistry significant for BUN of 27, creatinine 1.5, GFR 40. Random glucose 299, 207, 213. Calcium is within normal limit. Magnesium 2.6. LFTs are normal. Troponin 2 sets are negative. TSH is pending. The patient had a chest x-ray done in the emergency room which was reviewed, which showed diminished lung volume, questionable atelectasis; chest x-ray was reviewed. CT head was reviewed. The patient also had a lumbar spine CT which was also reviewed. The patient had hip and pelvic x-rays which were reviewed. EKG shows sinus rhythm, sinus tachycardia, left anterior hemiblock, right bundle-branch block which is new. The patient was treated in the emergency room by the ER physician, and the patient was admitted to telemetry for syncope. IMPRESSION AND PLAN: 1. Syncope, etiology undetermined. 2. Recurrent falls. 3. Acute exacerbation of vertigo and dizziness. 4. Right paraspinal and right lower abdominal and right periumbilical possible contusion versus pain. 5. Leukocytosis with history of B-cell lymphoma. 6. Insulin-requiring diabetes mellitus. 7. History of diastolic right-sided congestive heart failure. 8. History of anxiety, depression, type 2 bipolar disorder. 9. History of dyslipidemia. 10. Transient tachycardia. 11. Normocytic anemia. 12. Acute kidney injury. 13. Hyperglycemia. 14. History of hypothyroidism. 15. 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 16. Questionable bilateral lower lobe atelectasis with decreased lung volumes. 17. 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 18. 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 19. Cholecystectomy. 20. Right kidney calcification. 21. Colonic diverticulosis. 22. Gait dysfunction. 23. History of hypovitaminosis D. 24. History of hypomagnesemia. 25. History of vertigo. 26. History of vitamin B12 deficiency. 27. History of hyperuricemia. PLAN: At this time, the patient will be admitted to telemetry. The patient has been ordered thyroid profile, serial labs, lipid panel ordered; blood cultures, C diff toxin, urine cultures ordered. Hip x-rays ordered. Consultation with hematology/oncology, infectious disease, cardiology, neurology, psychiatry, orthopedics. The patient's case referred for TCU, case management referral. Procalcitonin level ordered. CURRENT MEDICATIONS: Antivert 25 mg three times a day, Coreg 6.25 twice a day, Ecotrin 81 mg daily, folic acid 1 mg daily, Humalog low-dose sliding scale a.c. and at bedtime, Levemir 30 units at bedtime, Lipitor 10 mg daily, cefepime 1 g q. 24, Protonix 40 mg daily, Risperdal 0.25 b.i.d. The patient started on IV fluid 0.9 at 100 mL an hour, Synthroid 88 mcg daily, Tylenol 650 q. 6 p.r.n., Wellbutrin 150 mg daily, Xanax 0.5 mg t.i.d., allopurinol 100 mg daily. Carotid Doppler, MRI of the brain. The patient will be ordered a CAT scan of the chest, abdomen and pelvis. EKG has been ordered. Echo with Doppler ordered. EEG has been ordered by neurology. The patient has been ordered Consistent Carbohydrate Diet. Neuro checks q. 2 hours. The patient has been ordered SCDs, SANTOS stockings. At present, the patient's further management will be dependent upon the patient's clinical condition, hemodynamic status and as per the patient's response to therapeutic intervention, as per the patient's diagnostic test results and as per recommendation by neurology, cardiology, psychiatry and hematology/oncology. At present, the patient's further management will be dependent upon the above. The patient will be ordered a repeat EKG for the morning. The patient will be ordered out of bed to chair once cleared by neurology. Repeat EKG will be ordered. In view of the patient's above medical condition, the patient will be monitored very closely and the patient's further management is as discussed above. Dictated and electronically signed, not read. Amadou Alston MD MTDLe[place]
--- NOTE | 2016-12-12 13:55 | CT ---
PROCEDURE: CT Chest, Abdomen and Pelvis without intravenous contrast HISTORY: FALL/ATELACTSIS/ABD PAIN/SYNCOPE COMPARISON: CT 03/18/2014 TECHNIQUE: Radiation dose: Total exam DLP = 902 mGy-cm. This CT exam was performed using one or more of the following dose reduction techniques: Automated exposure control, adjustment of the mA and/or kV according to patient size, and/or use of iterative reconstruction technique. FINDINGS: CT CHEST WITHOUT CONTRAST: LUNGS: There is pleural based scarring at the left lung base. Small scattered nodular densities are also seen at both lung bases. Followup may be indicated. MEDIASTINUM: Unremarkable. Normal caliber aorta and pulmonary arterial trunk. Normal size heart. LYMPH NODES: Unremarkable. PLEURA: Unremarkable. No pneumothorax. No pleural fluid. BONES: Unremarkable. OTHER FINDINGS: None. CT ABDOMEN AND PELVIS: LIVER: Unremarkable. No gross lesion or ductal dilatation. GALLBLADDER AND BILE DUCTS: Unremarkable. PANCREAS: Unremarkable. No gross lesion or ductal dilatation. SPLEEN: Unremarkable. ADRENALS: Unremarkable. No mass. KIDNEYS AND URETERS: There is a scar with calcification in the right kidney. There is an irregular linear calcification anterior to the lower pole of the right kidney. These findings are unchanged. VASCULATURE: Unremarkable. No aortic aneurysm. BOWEL: Unremarkable. No obstruction. No gross mural thickening. There is a 4.6 cm cystic mass or lesion adjacent to the stomach that is unchanged in size. 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 APPENDIX: Normal appendix. PERITONEUM: Unremarkable. No free fluid. No free air. LYMPH NODES: Unremarkable. No enlarged lymph nodes. BLADDER: Unremarkable. REPRODUCTIVE: Unremarkable. BONES: No acute fracture. OTHER FINDINGS: None. IMPRESSION: No acute findings
--- NOTE | 2016-12-12 17:25 | CP.PCM.CON ---
History of Present Illness - History of Present Illness History of Present Illness: 86 year old female with PMH of DM, HTN, hypothyroidism, history of diverticulitis, GERD, degenerative joint disease, history of depression and anxiety, S/P cholecystectomy, S/P hysterectomy, history of B-cell lymphoma was brought in to [facility] because of a snycopal episode, where the patient fell while walking towards the restroom. She felt lightheaded and saw the ceiling spinning and her legs gave way. She does not recall hitting her head anywhere. She states that her right flank and right back area hit the floor and still feels sore. She has urinary frequency but no dysuria. She denies fever or chills, no nausea or vomiting, no chest pain, no SOB, no cough or colds, no diarrhea. In the ED, she was noted to have leukocytosis and Infectious Diseases consult is requested to further evaluate and manage. Review of Systems - Review of Systems All systems: reviewed and no additional remarkable complaints except (as per HPI ) Past Patient History - Infectious Disease Hx of Infectious Diseases: None - Tetanus Immunizations Tetanus Immunization: Unknown - Past Medical History & Family History Past Medical History?: Yes - Past Social History Smoking Status: Former Smoker - CARDIAC Hx Cardiac Disorders: Yes Hx Hypertension: Yes - PULMONARY Hx Respiratory Disorders: No - NEUROLOGICAL Hx Neurological Disorder: Yes Hx Dizziness: Yes (Vertigo) Hx Transient Ischemic Attacks (TIA): Yes Hx Vertigo: Yes - HEENT Hx HEENT Problems: No Hx Blind: No Hx Cataracts: No Hx Deafness: No Hx Difficulty Chewing: No Hx Epistaxis: No Hx Glaucoma: No Hx Macular Degeneration: No - RENAL Hx Chronic Kidney Disease: No Hx Dialysis: No Hx Kidney Stones: Yes (Lithotripsy and able to pass also.) - ENDOCRINE/METABOLIC Hx Endocrine Disorders: Yes Hx Diabetes Mellitus Type 1: Yes Hx Diabetes Mellitus Type 2: Yes Hx Hypothyroidism: Yes - HEMATOLOGICAL/ONCOLOGICAL Hx Blood Disorders: Yes - INTEGUMENTARY Hx Dermatological Problems: No - MUSCULOSKELETAL/RHEUMATOLOGICAL Hx Falls: No - GASTROINTESTINAL Hx Gastrointestinal Disorders: Yes (Hx of Cholecystectomy; Gallstones; Polypectomy; Hemorrhoidectomy; GI Bleed.) Hx Constipation: Yes Hx Diarrhea: Yes Hx Diverticulitis: Yes Hx Gall Bladder Disease: Yes Hx Gastritis: Yes Hx Gastroesophageal Reflux: Yes Hx Hemorrhoids: Yes - GENITOURINARY/GYNECOLOGICAL Hx Genitourinary Disorders: Yes Other/Comment: FIBROID - PSYCHIATRIC Hx Psychophysiologic Disorder: Yes Hx Anxiety: Yes Hx Depression: Yes Hx Panic Symptoms: Yes Hx Post Traumatic Stress Disorder: Yes Hx Substance Use: No - SURGICAL HISTORY Hx Appendectomy: Yes Hx Cholecystectomy: Yes Hx Hysterectomy: Yes Other/Comment: benign breast cyst, polypectomy, hemorrhoidectomy,quarterized "a blood vessel" as per pt - ANESTHESIA Hx Anesthesia: Yes Hx Anesthesia Reactions: No Hx Malignant Hyperthermia: No Meds Allergies/Adverse Reactions: Allergies Allergy/AdvReac Type Severity Reaction Status Date / Time No Known Allergies Allergy Verified 12/11/16 20:34 - Medications Medications: Current Medications Acetaminophen (Tylenol 325mg Tab) 650 mg PO Q6H PRN PRN Reason: Pain, Mild (1-3) Allopurinol (Zyloprim) 100 mg PO DAILY [facility] Alprazolam (Xanax) 0.5 mg PO TID [facility] Aspirin (Ecotrin) 81 mg PO DAILY [facility] Atorvastatin Calcium (Lipitor) 10 mg PO DIN [facility] Bupropion HCl (Wellbutrin Xl) 150 mg PO QAM [facility] Carvedilol (Coreg) 6.25 mg PO BID [facility] Folic Acid (Folic Acid) 1 mg PO DAILY [facility] Cefepime HCl (Maxipime 1gm) 1 gm in 100 mls @ 100 mls/hr IVPB Q24H [facility] PRN Reason: Protocol Sodium Chloride (Sodium Chloride 0.9%) 1,000 mls @ 100 mls/hr IV .Q10H [facility] Last Admin: 12/12/16 05:15 Dose: 100 mls/hr Insulin Detemir (Levemir) 30 unit SC HS [facility] Insulin Human Lispro (Humalog Low) 0 units SC ACHS [facility] PRN Reason: Protocol Levothyroxine Sodium (Synthroid) 88 mcg PO QAM [facility] Meclizine HCl (Antivert) 25 mg PO TID [facility] Pantoprazole Sodium (Protonix Ec Tab) 40 mg PO 0600,1600 [facility] Last Admin: 12/12/16 05:16 Dose: 40 mg Risperidone (Risperdal Tab) 0.25 mg PO BID [facility] PRN Reason: Protocol Physical Exam - Constitutional Appears: Non-toxic, No Acute Distress - Head Exam Head Exam: NORMAL INSPECTION - ENT Exam ENT Exam: Mucous Membranes Moist - Neck Exam Neck exam: Negative for: Lymphadenopathy, Meningismus - Respiratory Exam Respiratory Exam: Decreased Breath Sounds - Cardiovascular Exam Cardiovascular Exam: +S1, +S2 - GI/Abdominal Exam GI & Abdominal Exam: Soft. absent: Tenderness Results - Vital Signs Recent Vital Signs: Last Vital Signs Temp 98.1 F 12/12/16 05:57 Pulse 82 12/12/16 05:57 Resp 18 12/12/16 05:57 BP 113/65 12/12/16 05:57 Pulse Ox 92 L 12/12/16 05:57 - Labs Result Diagrams: 12/12/16 06:20 12/12/16 06:20 Labs: Laboratory Results - last 24 hr 12/12/16 12/12/16 12/12/16 02:30 06:20 06:20 WBC 22.7 H RBC 3.95 Hgb 11.6 L D Hct 35.2 L MCV 89.1 MCH 29.4 MCHC 33.0 RDW 15.9 H Plt Count 151 MPV 12.1 H Sodium 141 Potassium 4.3 Chloride 101 Carbon Dioxide 27 Anion Gap 17 BUN 27 H Creatinine 1.5 H Est GFR ( Amer) 40 Est GFR (Non-Af Amer) 33 POC Glucose (mg/dL) Random Glucose 207 H Calcium 8.8 Phosphorus 4.4 Magnesium 2.6 H Total Bilirubin 0.4 AST 17 ALT 26 Alkaline Phosphatase 107 Lactate Dehydrogenase 446 Total Creatine Kinase 29 L Troponin I < 0.01 Total Protein 6.7 Albumin 4.1 Globulin 2.6 Albumin/Globulin Ratio 1.6 12/12/16 07:14 WBC RBC Hgb Hct MCV MCH MCHC RDW Plt Count MPV Sodium Potassium Chloride Carbon Dioxide Anion Gap BUN Creatinine Est GFR ( Amer) Est GFR (Non-Af Amer) POC Glucose (mg/dL) 213 H Random Glucose Calcium Phosphorus Magnesium Total Bilirubin AST ALT Alkaline Phosphatase Lactate Dehydrogenase Total Creatine Kinase Troponin I Total Protein Albumin Globulin Albumin/Globulin Ratio Assessment & Plan - Assessment and Plan (Free Text) Plan: Assessment Leukocytosis, consider related to her B-cell lymphoma, R/O sepsis, source to be determined syncopal episode, etiology to be determined DM HTN hypothyroidism history of diverticulitis GERD degenerative joint disease history of depression and anxiety S/P cholecystectomy S/P hysterectomy history of B-cell lymphoma Plan Patient has been given a dose of IV Vancomycin and started on Cefepime by primary team - will follow up blood, urine cx, PCT; CT chest/abdomen and pelvis did not reveal acute pathology - if cultures are negative, will d/c antibiotics follow up syncope work up will monitor clinically
[2016-12-12 17:38] LABS: FOLATE > 20.0 ng/mL
[2016-12-12] MEDS: Lidocaine 5% Patch TD SCH (18:05)
--- NOTE | 2016-12-12 20:31 | CARD ---
APPROVED REPORT EXAM: Two-dimensional and M-mode echocardiogram with Doppler and color Doppler. INDICATION Syncope 2D DIMENSIONS Left Atrium (2D)3.2 (1.6-4.0cm)IVSd1.2 (0.7-1.1cm) LVDd3.4 (3.9-5.9cm)PWd1.2 (0.7-1.1cm) LVDs2.3 (2.5-4.0cm)FS (%) 31.3 % LVEF (%)60.5 (>50%) M-Mode DIMENSIONS Aortic Root2.50 (2.2-3.7cm)Aortic Cusp Exc.1.70 (1.5-2.0cm) Aortic Valve AoV Peak Ughryhcm825.0cm/Fred Peak GR.11mmHg Mitral Valve MV E Hwdmcgxj42.9cm/sMV A Zrakoeax397.0cm/sE/A ratio0.8 TDI E/Lateral E'0.0E/Medial E'0.0 Tricuspid Valve TR Peak [id number]/sRAP [id number] Peak Gr.15mmHg [id number] LEFT VENTRICLE The left ventricle is normal size. There is borderline concentric left ventricular hypertrophy. The left ventricular function is normal. The left ventricular ejection fraction is within the normal range. There is normal LV segmental wall motion. Transmitral Doppler flow pattern is Grade I-abnormal relaxation pattern. RIGHT VENTRICLE The right ventricle is normal size. There is normal right ventricular wall thickness. The right ventricular systolic function is normal. ATRIA The left atrium size is normal. The right atrium size is normal. AORTIC VALVE The aortic valve is thickened but opens well. No aortic regurgitation is present. There is no aortic valvular stenosis. MITRAL VALVE The mitral valve is mildly thickened. There is no mitral valve regurgitation noted. There is no mitral valve stenosis. TRICUSPID VALVE The tricuspid valve is normal in structure. There is no tricuspid valve regurgitation noted. GREAT VESSELS The aortic root is normal in size. The IVC was not visualized. <Conclusion> The left ventricle is normal size. There is borderline concentric left ventricular hypertrophy. The left ventricular function is normal. The left ventricular ejection fraction is within the normal range. Transmitral Doppler flow pattern is Grade I-abnormal relaxation pattern.
--- NOTE | 2016-12-12 20:50 | CARD ---
APPROVED REPORT EKG Measurement Heart [id number] <Conclusion> Sinus rhythm with premature supraventricular complexes Right bundle branch block Left anterior fascicular block Bifascicular block Moderate voltage criteria for LVH, may be normal variant Abnormal ECG
--- NOTE | 2016-12-12 20:58 | CARD ---
APPROVED REPORT EKG Measurement Heart [id number] <Conclusion> Normal sinus rhythm Possible Left atrial enlargement Right bundle branch block Left anterior fascicular block Bifascicular block Left ventricular hypertrophy Abnormal ECG
[2016-12-12] MEDS: Insulin Detemir 100 units/ml Vial (Levemir) SC SCH (21:22)
[2016-12-12 21:59] LABS: URINE BILIRUBIN NEGATIVE (NEGATIVE); URINE BLOOD SMALL (NEGATIVE); URINE GLUCOSE (UA) NEGATIVE (NEGATIVE); URINE KETONE TRACE mg/dL (NEGATIVE); URINE LEUKOCYTE ESTERASE MODERATE Leu/uL (NEGATIVE); URINE PROTEIN TRACE mg/dL (<30 mg/dL); URINE UROBILINOGEN 0.2 E.U./dL (<1 E.U./dL)
[2016-12-12 22:23] LABS: URINE APPEARANCE CLOUDY (CLEAR); URINE COLOR YELLOW (YELLOW)
[2016-12-12 22:24] LABS: URINE BACTERIA MOD (NEG); URINE EPITHELIAL CELLS 0 - 2 /hpf (0-5); URINE WBC 20 - 25 /hpf (0-6)
--- NOTE | 2016-12-13 00:56 | CON ---
DATE: 12/12/2016 REASON FOR CONSULTATION: Known low-grade lymphoma as well as anemia. HISTORY OF PRESENT ILLNESS: The patient is an 86 year old female well known to me for several years. Initially diagnosed with anemia several years ago, also was noted to have a low-grade lymphoma at that time and has never required any treatment for the above. She now presents with a syncopal episode at home. Hemoglobin was 13 on admission and has dropped down to 11.6. There is no active bleeding. She has not noted any melena or hematochezia. No hematuria, no hematemesis. She states that she was walking to the restroom when she felt dizzy. Denies any palpitations or chest pain associated with it, currently undergoing a full cardiac workup as well as a neurological workup. PAST MEDICAL HISTORY: Positive for hypertension, diabetes, congestive heart failure, history of GI bleed, chronic AV malformations and ongoing bleeding, GERD, degenerative joint disease, depression, and history of low-grade lymphoma. PAST SURGICAL HISTORY: Positive for cholecystectomy and hysterectomy. HOME MEDICATIONS: Include Protonix, vitamin B12, Coreg, allopurinol, Lasix, Lantus, aspirin, risperidone, folic acid, bupropion, meclizine, pravastatin, Levoxyl, Xanax, and Ritalin. ALLERGIES: NO KNOWN DRUG ALLERGIES. SOCIAL HISTORY: She has a history of smoking in the past, but quit years ago. Denies any alcohol use or drug use. FAMILY HISTORY: Noncontributory. REVIEW OF SYSTEMS: As per the HPI. PHYSICAL EXAMINATION: VITAL SIGNS: Reveal a temperature of 97.9, pulse of 74, respiratory rate of 20, and a blood pressure of 127/60. GENERAL: The patient is an elderly pleasant female lying in bed in no acute distress. HEENT: HEAD: Normocephalic, atraumatic. Eyes: Pupils equal, round, and reactive to light and accommodation. Extraocular muscles are intact. There is no pallor. No icterus is noted. NECK: Supple with no adenopathy. No JVD. No thyromegaly. LUNGS: Clear to auscultation bilaterally with no rales or rhonchi. CARDIOPULMONARY: S1 and S2 are heard. ABDOMEN: Positive bowel sounds, soft, nontender, nondistended. No organomegaly is palpated. EXTREMITIES: There is no edema, clubbing, or cyanosis. LABORATORY DATA: Her labs revealed a white count of 22.7, hemoglobin of 11.6, hematocrit of 35.2, MCV of 89.1, and a platelet count of 151. Coag studies are within normal limits. Chemistries are also within normal limits except for a mild elevation in BUN and creatinine of 27 and 1.5. ASSESSMENT AND PLAN: Elderly female with current syncopal episode, history of arteriovenous malformations and ongoing gastrointestinal bleed, gets intravenous iron as a maintenance in the outpatient setting. Her counts have been stable. She has a known history of low-grade lymphoma which has never required any treatment. We would continue her workup for syncope at this point; no intervention from hematological point of view. She will be followed up once she is discharged. Thank you for the consult. We will follow. Ursula Lane MD
[2016-12-13] MEDS: Pantoprazole 40 mg EC Tab PO SCH ×2 (05:39→16:48)
[2016-12-13 06:36] LABS: HEMATOCRIT 34.1 % (36.0-48.0); MEAN CELL VOLUME 90.7 fl (80.0-105.0); MEAN CORPUSCULAR HEMOGLOBIN 29.5 pg (25.0-35.0); MEAN CORPUSCULAR HGB CONC 32.6 g/dl (31.0-37.0); WHITE BLOOD COUNT 12.7 10^3/ul (4.5-11.0)
[2016-12-13 06:40] LABS: ALB/GLOB RATIO 1.4 (1.1-1.8); ALKALINE PHOSPHATASE 95 U/L (38-126); ALT/SGPT 21 U/L (7-56); AST/SGOT 15 U/L (14-36); BILIRUBIN,DIRECT 0.3 mg/dL (0.0-0.4); BILIRUBIN,TOTAL 0.3 mg/dL (0.2-1.3); BLOOD UREA NITROGEN 18 mg/dL (7-21); CALCIUM 8.4 mg/dL (8.4-10.5); CARBON DIOXIDE 26 mmol/L (21-33); CHLORIDE 106 mmol/L (98-107); CHOLESTEROL 128 mg/dL (130-200); GFR AFRICAN-AMERICAN > 60; GLUCOSE,RANDOM 137 mg/dL (70-110); MAGNESIUM 2.4 mg/dL (1.7-2.2); PHOSPHOROUS 3.2 mg/dL (2.5-4.5); POTASSIUM 3.9 mmol/L (3.6-5.0); SODIUM 143 mmol/L (132-148); TOTAL PROTEIN 6.3 g/dL (5.8-8.3)
[2016-12-13] MEDS: Insulin Lispro (humaLOG) LOW Coverage SC SCH ×4 (08:04→22:30)
[2016-12-13] MEDS: Levothyroxine 88 MCG TAB PO SCH (09:09)
[2016-12-13] MEDS: buPROPion 150 mg/24 Hours XL Tab PO SCH (09:10)
[2016-12-13] MEDS: Lidocaine 5% Patch TD SCH (09:11)
[2016-12-13] MEDS: Sodium Chloride 0.9% 1,000 ML IV SCH (10:45)
--- NOTE | 2016-12-13 10:56 | PN ---
DATE: 12/13/2016 SUBJECTIVE: The patient is seen in #272, bed #1. No fevers or chills. OBJECTIVE: VITAL SIGNS: On exam, temperature is 98, blood pressure is 140/60 and respiratory of 18. EXAMINATION OF HEENT: Unremarkable. NECK: Supple. LUNGS: Have decreased breath sounds. HEART EXAM: Normal S1 and S2. ABDOMINAL EXAMINATION: Soft and nontender. No rebound. No guarding. LABORATORY EXAMINATION: Reveals the white count is down to 12,700; hemoglobin of 11 and platelets of 110. Chemistries reveal a BUN of 18 and creatinine of 0.9. Urinalysis is noted. Microbiology reveals the blood cultures are no growth. Stool for C. Diff, negative antigen, negative toxin. The patient is on IV cefepime. ASSESSMENT AND PLAN: An 86-year-old female with leukocytosis, questionable related to B-cell lymphoma, must rule out sepsis and syncopal episode. Workup in progress in a patient with diabetes, hypertension, hypothyroidism, history of diverticulitis and gastroesophageal reflux disease. One dose of vancomycin was given, currently on cefepime with negative blood cultures and times for 24 hours and stool for Clostridium difficile negative, antigen and toxin. The patient also had a CAT scan of the abdomen and pelvis and chest, read by Dr. Ch, no acute findings in the CAT scan of the abdomen and pelvis. New CAT scan of the chest , there is pleural-based scarring. We will check on the final culture results. The patient had a procalcitonin of 0.53 yesterday. We will follow the WBCs. Surya Lai MD
[2016-12-13] MEDS: Cefepime 1gm in NS 100ml 1 GM/100 ML BAG IVPB SCH (11:00)
--- NOTE | 2016-12-13 13:47 | PN ---
NEUROLOGY PROGRESS NOTE SUBJECTIVE: The patient is lying on the bed, in no acute distress, was slightly dizzy this morning, but now feels better. PHYSICAL EXAMINATION: VITAL SIGNS: Her blood pressure is 146/69, heart rate is 75 per minute, breathing at the rate of 16 per minute, temperature is 99.6 degree Fahrenheit. HEENT: Normocephalic, atraumatic. NECK: Supple. There are no carotid bruits. LUNGS: Clear. CARDIOVASCULAR: S1 and S2 audible. No murmur. ABDOMEN: Soft, nontender. Bowel sounds are present. NEUROLOGIC: Mental status: The patient is awake, alert, oriented to time, place, person. Speech is fluent. Naming and repetition is normal. Memory and cognition are intact. Cranial Nerve Examination: Pupils are 3 mm bilaterally, reacting to light. Visual cabral are full. Extraocular movements are intact. There is no facial asymmetry. The palate is upgoing bilaterally, and tongue is midline. Motor Examination: Tone is normal. Power is 5/5 bilaterally in all extremities. Reflexes are 1+ and symmetrical. Plantars downgoing bilaterally. LABORATORY DATA: Reviewed. IMAGING: Carotid Doppler shows bilateral 20% to 39% proximal internal carotid artery stenosis. MRI of the brain shows stable age-related neurodegenerative changes that are identified once again which is not simply changed in the interval, chronic lacune and question of the left thalamus and no acute intracranial findings are identified. She had an electroencephalogram, which is normal. IMPRESSION: 1. Status post syncope. 2. Gait dysfunction. 3. History of dizziness. RECOMMENDATIONS: 1. The patient had no further episode of passing out. 2. The patient did have physical therapy for gait imbalance. 3. The patient to be continued on meclizine; however, if she continues to this dizziness despite being on meclizine, consider discontinuing meclizine. 4. Please continue supportive care and the treatment. 5. The patient may benefit from few days of subacute rehabilitation placement. Thank you for the opportunity to participate in the care of this patient. Yareli Velazquez MD
--- NOTE | 2016-12-13 14:03 | PN ---
DATE: 12/13/2016 SUBJECTIVE: The patient is in bed without dizziness, without shortness of breath. PHYSICAL EXAMINATION: VITAL SIGNS: Blood pressure is 146/70, heart rate is in the 70s. Normal sinus rhythm. NECK: Negative JVD. LUNGS: Without rales. HEART: With S1, S2. EXTREMITIES: Without edema. LABORATORY DATA: Glucose is 137. Hemoglobin is 11.1, white count is down to 12.7. Echocardiogram reveals good LV function with no LV outflow obstruction. IMPRESSION: 1. Vertigo. 2. Elevated white count. 3. History of hypertension. 4. History of diabetes mellitus. PLAN: Given these findings, there is no cardiac cause of her vertigo or near syncope noted. We will DC telemetry today. No further cardiac workup is necessary at this time. Elbert Lagunas MD
--- NOTE | 2016-12-13 21:29 | PN ---
DATE: 12/13/2016 SUBJECTIVE: The patient is seen lying in the bed in room 272, bed 1. The patient was examined and seen while the patient has been cleaned up by the PCP. The patient still complains of right-sided abdominal wall pain and right flank pain and right-sided back pain, which is nonradiating and localized. The patient does have musculoskeletal palpable tenderness on examination. Overnight nurses' notes were reviewed. PHYSICAL EXAMINATION: VITAL SIGNS: The patient's vital signs were reviewed. T-max was afebrile. Telemetry shows sinus rhythm, heart rate in 80s to high 70s beats per minute, sinus rhythm; blood pressure 140/69 this morning; O2 saturation is 98% to 97%; respirations 20. HEENT AND NECK: Head examination, normocephalic and atraumatic. Pinkish pale conjunctivae. Anicteric sclerae, dry oral mucosa. No neck rigidity. CHEST: Kyphosis. LUNG: Examination shows no rales, crackles or wheezing. CARDIOVASCULAR: S1, S2, regular rhythm. Questionable soft systolic murmur in right second intercostal space, left sternal border, left second intercostal space. ABDOMEN: Soft, slightly protuberant. Positive bowel sounds. Questionable and possible right-sided abdominal wall musculoskeletal tenderness on palpation. BACK: Positive right lower back tenderness on palpation of the musculoskeletal area. GENITALIA: Female. RECTAL: Examination is deferred. EXTREMITIES: Shows no pitting edema, no calf tenderness, no Homans' signs. NEUROLOGIC: Motor strength is 5/5 in upper and lower extremities. Gait examination is not tested. Cranial nerves II through XII intact and limited. MUSCULOSKELETAL: Examination is as per the body mass index. DIAGNOSTICS: Significant abnormal diagnostics: Glucose 184, triglyceride 243. Procalcitonin level 0.53. BUN and creatinine 18 and 0.9 which has normalized. The patient's urine analysis shows positive nitrite, positive blood, positive bacteria. The patient's CT of the chest, abdomen and pelvis reviewed. Carotid Doppler reviewed. MRI of the brain reviewed. Echocardiogram was done, which results were reviewed. EKG was reviewed. IMPRESSION: 1. Syncope, etiology undetermined. 2. Gait dysfunction with increase in acute exacerbation of vertigo and dizziness. 3. 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 4. Leukocytosis. 5. Anemia with hemoglobin and hematocrit of 11.1 and 34. 6. Thrombocytopenia with platelet count of 210,000. 7. Status post acute kidney injury. 8. Hypertension. 9. Hypertriglyceridemia. 10. Hyperprocalcitoninemia. 11. Questionable urinary tract infection with pyuria, microscopic hematuria, and bacteriuria. 12. Left lower lobe pleural-based scarring. 13. Bilateral pulmonary nodular densities. 14. Right renal calcification. 15. 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 16. A 20%-39% internal carotid artery stenosis. 17. Cerebral cortical atrophy of the brain. 18. Left thalamic lacunar infarct. 19. Mid to suprasellar area arachnoid cyst. 20. Bilateral mastoid effusion. 21. 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 22. Grade 1 abnormal relaxation pattern. 23. 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 24. Status post fall. 1. Syncope, etiology undetermined. 2. Recurrent falls. 3. Acute exacerbation of vertigo and dizziness. 4. Right paraspinal and right lower abdominal and right periumbilical possible contusion versus pain. 5. Leukocytosis with history of B-cell lymphoma. 6. Insulin-requiring diabetes mellitus. 7. History of diastolic right-sided congestive heart failure. 8. History of anxiety, depression, type 2 bipolar disorder. 9. History of dyslipidemia. 10. Transient tachycardia. 11. Normocytic anemia. 12. Acute kidney injury. 13. Hyperglycemia. 14. History of hypothyroidism. 15. 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 16. Questionable bilateral lower lobe atelectasis with decreased lung volumes. 17. 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 18. 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 19. Cholecystectomy. 20. Right kidney calcification. 21. Colonic diverticulosis. 22. Gait dysfunction. 23. History of hypovitaminosis D. 24. History of hypomagnesemia. 25. History of vertigo. 26. History of vitamin B12 deficiency. 27. History of hyperuricemia. PLAN: At this time, the patient is to be continued on continued followup with Hematology/Oncology. Their recommendation noted. The patient is seen by Neurology, the consultation report reviewed. EEG, preliminary report negative. The patient is seen by Neurology, Cardiology, and Infectious Disease. The patient is awaiting Psychiatry evaluation. The patient is to be continued on IV antibiotics as per Infectious Disease. The patient is to be continued on medications as per the MAR of today. The patient is to be continued on out of bed to chair. The patient will be continued on physical therapy and occupational therapy. The patient is to be evaluated by PT/OT. The patient is awaiting TCU evaluation. The patient is to be continued on IV fluid till further stabilization. The patient will be continued on further therapeutic intervention. The patient final blood culture results are pending. The patient's further management will be depending upon the patient's clinical condition, hemodynamic status and as per the patient response to therapeutic intervention, as per the patient's diagnostic test results, and as per recommendation by all the physicians involved in the care of the patient. Dictated and electronically signed, not read. Signing off; Amadou Alston MD MTDD
[2016-12-13] MEDS: Insulin Detemir 100 units/ml Vial (Levemir) SC SCH (22:31)
[2016-12-14] MEDS: Pantoprazole 40 mg EC Tab PO SCH ×2 (05:30→17:02)
[2016-12-14 07:45] LABS: MEAN CELL VOLUME 90.5 fl (80.0-105.0); MEAN CORPUSCULAR HEMOGLOBIN 29.6 pg (25.0-35.0); MEAN CORPUSCULAR HGB CONC 32.8 g/dl (31.0-37.0); MEAN PLATELET VOLUME 12.2 fl (7.0-11.0); RED CELL DISTRIBUTION WIDTH 15.5 % (11.5-14.5); WHITE BLOOD COUNT 12.7 10^3/ul (4.5-11.0)
[2016-12-14 08:09] LABS: ALB/GLOB RATIO 1.5 (1.1-1.8); ALKALINE PHOSPHATASE 106 U/L (38-126); ALT/SGPT 26 U/L (7-56); AST/SGOT 19 U/L (14-36); BILIRUBIN,DIRECT 0.3 mg/dL (0.0-0.4); BILIRUBIN,TOTAL 0.5 mg/dL (0.2-1.3); BLOOD UREA NITROGEN 12 mg/dL (7-21); CALCIUM 9.1 mg/dL (8.4-10.5); CARBON DIOXIDE 27 mmol/L (21-33); CHLORIDE 105 mmol/L (98-107); GFR AFRICAN-AMERICAN > 60; GLUCOSE,RANDOM 180 mg/dL (70-110); PHOSPHOROUS 3.2 mg/dL (2.5-4.5); POTASSIUM 4.2 mmol/L (3.6-5.0); SODIUM 144 mmol/L (132-148); TOTAL PROTEIN 6.9 g/dL (5.8-8.3)
[2016-12-14] MEDS: Insulin Lispro (humaLOG) LOW Coverage SC SCH ×3 (08:34→17:01)
[2016-12-14] MEDS ORDERED: POLYETHYLENE GLYCOL 3350 17 GM/Dose PACKET PO SCH (10:00)
[2016-12-14] MEDS: Lidocaine 5% Patch TD SCH (10:06)
[2016-12-14] MEDS: buPROPion 150 mg/24 Hours XL Tab PO SCH (10:07)
[2016-12-14] MEDS: Levothyroxine 88 MCG TAB PO SCH (10:07)
[2016-12-14] MEDS: Cefepime 1gm in NS 100ml 1 GM/100 ML BAG IVPB SCH (11:10)
--- NOTE | 2016-12-14 14:10 | PN ---
DATE: 12/14/2016 SUBJECTIVE: The patient is in bed in no acute distress, nontoxic. PHYSICAL EXAMINATION: VITAL SIGNS: Temperature is 98, blood pressure is 150/70, respiratory rate of 18. HEENT: Unremarkable. NECK: Supple. LUNGS: Have decreased breath sounds. HEART: Normal S1, S2. ABDOMEN: Soft and nontender. LABORATORY EXAMINATION: Reveals a white count of 12,700; hemoglobin of 11, and platelets of 108. Chemistries reveals a BUN of 12, creatinine of 0.7 and procalcitonin is noted to be 0.53 and microbiology reveals the blood cultures no growth. The urine culture is no growth and the stool for Clostridium difficile antigen and toxin are both negative. Review of orders reveals the patient to be on cefepime. ASSESSMENT AND PLAN: An 86-year-old female with leukocytosis and questionably related to the B-cell lymphoma syncopal episode and the patient with diabetes, hypertension, hypothyroidism, history of diverticulitis and we will follow closely with you. Surya Lai MD
--- NOTE | 2016-12-14 14:33 | CARD ---
APPROVED REPORT EKG Measurement Heart [id number] <Conclusion> Sinus rhythm with premature supraventricular complexes Right bundle branch block Left anterior fascicular block Bifascicular block Minimal voltage criteria for LVH, may be normal variant Abnormal ECG
[2016-12-14 17:06] VITALS: BP 166/100; PULSE 81
[2016-12-14 17:22] VITALS: RESP 20; TEMP 97.7; O2SAT 95
--- NOTE | 2016-12-16 08:06 | EEG ---
ELECTROENCEPHALOGRAM REPORT DATE: 12/13/2016 INTRODUCTION: This is a digitally recorded EEG monitoring using standard EEG montages. BACKGROUND RHYTHM: The EEG shows a background activity of 7.5 Hz theta activity in parietooccipital region. The EEG activity is bilaterally symmetrical and synchronous. There is attenuation of the background activity on eye opening. Drowsiness was noted by slowing of the background activity. ABNORMAL POTENTIAL: No spike, sharp waves, or focal slowing was seen. PHOTIC STIMULATION AND HYPERVENTILATION: Photic stimulation did not reveal any abnormality. Hyperventilation was not performed. IMPRESSION: Normal electroencephalogram. No epileptiform activity seen in this electroencephalogram recording. Yareli Velazquez MD
--- NOTE | 2016-12-16 09:03 | CON ---
PSYCHIATRIC CONSULTATION DATE: 12/13/2016 HISTORY OF PRESENT ILLNESS: The patient is a 86-year-old female. Reviewed the chart. She is well known to me, know her from many many years. I have seen her periodically in my office for psychiatric treatment. The patient apparently was admitted on the 12/11/2016, after having had an episode of falling at home. She states she became shaky, dizzy, nauseous and the room was spinning with one episode of the nausea and vomiting. Due to a fall, she had trauma to her right flank and hip. The patient has had a past history, she has a long history of recurrent depressive disorder and severe anxiety, agitation for many years consistent with some bipolar II disorder. She also has a history of lymphoma, anemia, vertigo, degenerative joint disease, insulin-dependent diabetes mellitus, diastolic congestive heart failure, hypertension, hyperlipidemia, hypothyroidism, diverticulosis and GERD. FAMILY HISTORY: The patient is not know the diagnoses of lymphoma as per family request. PERSONAL HISTORY: She is a matriarch of a very large family. She has many daughters, grandchildren, great grandchildren. She has been for approximately 30 years. at the young age. LABORATORY DATA: The patient's current laboratory data; initially on admission her white count is 25,700, yesterday it is 12,700, her hemoglobin is 11.1 and platelet count is 110,000. Her metabolic profile as of yesterday; blood sugar is 190. All her electrolytes, BUN and creatinine were normal. Her hemoglobin A1c is 7.8. Her rest of profile of only significance; magnesium 2.4. Liver functions normal; triglycerides 243, LDL cholesterol 68. The patient's TSH was 4.3. The patient's vitamin D level is 47 and B12 is about 33. The patient's procalcitonin is 0.53 ng/mL. The patient has CT scan of the chest, pelvis, abdomen which interpreted as no acute findings. The patient has a x-ray of the hip and pelvis, it was unremarkable. The patient had a CT scan of the head on admission which showed no acute hemorrhage. She had some age related ventricular dilatation. The patient had no masses or other abnormalities noted. I reviewed the consultation from neurologist, who found no cardiac evidence for her fall or abnormalities. The patient also had MRI of the brain which showed diffuse cerebral atrophy with chronic microvascular disease. The patient had a possible arachnoid cyst. The patient has been seen by also infectious disease consultants and author's agent. The author's agent feels she had leukocytosis related to her B cell lymphoma, possible sepsis. The patient has a gait dysfunction. PHYSICAL EXAMINATION VITAL SIGNS: Her blood pressure is 176/76, pulse is 83 and per minute. PSYCHIATRICALLY: Her mental status; she is awake, alert, she recognizes me. She is oriented x3. Her memory is mostly intact. Judgement is fair. No psychotic symptomatology. No agitation noticed. No severe state of depression noticed. CURRENT MEDICATIONS: Include Antivert 25 mg t.i.d., Coreg, Ecotrin, folate, Levemir 30 units subcu at bedtime, Lidoderm patch, Lipitor 10 mg daily, Maxipime IV, Protonix, Risperdal 0.25 mg b.i.d., Synthroid 88 mcg q. a.m., Wellbutrin 150 mg p.o. q.a.m. and Xanax 0.5 mg t.i.d. IMPRESSION: The patient has history of bipolar II disorder and stable. She has a history of vertigo, history of lymphoma, history of leukocytosis, the patient has a history of renal insufficiency. The patient has a possible sepsis. PLAN: We will continue current psychotropic medications. We will monitor as needed her mental status. oTro Carr MD MTDD
--- NOTE | 2016-12-16 09:11 | DS ---
FINAL PROGRESS NOTE AND DISCHARGE SUMMARY HISTORY OF PRESENT ILLNESS: The patient is seen, lying in the bed in room 361, bed 1. The patient is upset and the patient states that she is not interested in going to TCU. The patient wants to go home. I have advised the patient to discuss with social security benefits interviewer and the patient's daughter. The patient's daughter was contacted and the patient's daughter called back in the office. The patient's daughter stated that the patient will definitely go to TCU. She has agreed for going to TCU after TCU details were explained to the patient at length by the Banana Handler and the nurses, so then the patient is now agreeing to go to Transitional Care Unit. The patient is seen, lying in the bed in room 361, bed 1. Overnight nurse's notes were reviewed. PHYSICAL EXAMINATION: VITAL SIGNS: T-max afebrile, heart rate normal sinus rhythm in 70s and 80s, respirations 20, O2 sat 94 to 96 to 99%, blood pressure was 141/70, 160/79. HEAD: Normocephalic, atraumatic. HEENT: Shows pinkish pale conjunctivae. Anicteric sclerae. No oropharyngeal lesion. NECK: No neck rigidity. CHEST: Kyphosis. LUNGS: Shows no rales, crackles, or wheezing. CARDIOVASCULAR: S1 and S2, regular rhythm. ABDOMEN: Soft, slightly protuberate, positive bowel sound. GENITALIA: Female. RECTAL: Deferred. EXTREMITIES: Shows no pitting, no calf tenderness, no Lucio's signs. NEUROLOGIC: The patient is alert, awake and responsive. She is able to move upper lower extremities without assistance. Motor strength is 5/5 in upper and lower extremities. Gait examination is not tested. Cranial nerves II through XII intact and limited. VASCULAR: Palpable pulses. DIAGNOSTICS: WBC 12.7 which has decreased down from 25,000, hemoglobin and hematocrit are 11.8 and 36, platelet count 108,000. Chemistry: CMP and LFTs are within normal limits. Glucose 181 and 260. Microbiology: Blood cultures negative. Urine culture negative. Clostridium difficile negative. IMPRESSION AND PLAN: 1. Questionable and problem with syncope, etiology undetermined. 2. Acute exacerbation of vertigo and dizziness. 3. Gait dysfunction. 4. Recurrent falls. 5. Right-sided abdominal muscle and contusion and musculoskeletal pain. 6. Hypertension. 7. History of anxiety, depression, type 2 bipolar disorder. 8. Leukocytosis with granulocytosis and history of B-cell lymphoma. 9. Normocytic anemia. 10. Thrombocytopenia. 11. Insulin-requiring diabetes mellitus. 12. Atherosclerotic heart disease. 13. Dyslipidemia. 14. Gastroesophageal reflux. 15. Hypothyroidism. 16. Hyperuricemia. 1. Syncope, etiology undetermined. 2. Gait dysfunction with increase in acute exacerbation of vertigo and dizziness. 3. 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 4. Leukocytosis. 5. Anemia with hemoglobin and hematocrit of 11.1 and 34. 6. Thrombocytopenia with platelet count of 210,000. 7. Status post acute kidney injury. 8. Hypertension. 9. Hypertriglyceridemia. 10. Hyperprocalcitoninemia. 11. Questionable urinary tract infection with pyuria, microscopic hematuria, and bacteriuria. 12. Left lower lobe pleural-based scarring. 13. Bilateral pulmonary nodular densities. 14. Right renal calcification. 15. 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 16. A 20%-39% internal carotid artery stenosis. 17. Cerebral cortical atrophy of the brain. 18. Left thalamic lacunar infarct. 19. Mid to suprasellar area arachnoid cyst. 20. Bilateral mastoid effusion. 21. 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 22. Grade 1 abnormal relaxation pattern. 23. 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 24. Status post fall. 1. Syncope, etiology undetermined. 2. Recurrent falls. 3. Acute exacerbation of vertigo and dizziness. 4. Right paraspinal and right lower abdominal and right periumbilical possible contusion versus pain. 5. Leukocytosis with history of B-cell lymphoma. 6. Insulin-requiring diabetes mellitus. 7. History of diastolic right-sided congestive heart failure. 8. History of anxiety, depression, type 2 bipolar disorder. 9. History of dyslipidemia. 10. Transient tachycardia. 11. Normocytic anemia. 12. Acute kidney injury. 13. Hyperglycemia. 14. History of hypothyroidism. 15. 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 16. Questionable bilateral lower lobe atelectasis with decreased lung volumes. 17. 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 18. 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 19. Cholecystectomy. 20. Right kidney calcification. 21. Colonic diverticulosis. 22. Gait dysfunction. 23. History of hypovitaminosis D. 24. History of hypomagnesemia. 25. History of vertigo. 26. History of vitamin B12 deficiency. 27. History of hyperuricemia. PLAN: At this time, the patient has been out of bed to chair. As mentioned, the patient's daughter was contacted. The patient's daughter has talked to the patient. She has agreed to be discharge to TCU. The patient has agreed to go to TCU. The patient will be discharged to TCU today under Dr. Alston service. DISCHARGE MEDICATIONS: Meclizine 25 mg three times a day, Coreg 6.25 mg twice a day, Ecotrin 81 mg daily, folic acid 1 mg daily, Humalog low dose sliding scale coverage a.c. and at bedtime, Levemir 30 units subcutaneous at bedtime, Lidoderm 5% patch to the effected area, Lipitor 10 mg daily, cefepime 1 g IV q. 24 hours, MiraLax 17 g twice a day, Protonix 40 mg twice a day, Risperdal 0.25 mg twice a day, Synthroid 88 mcg daily, Tylenol 650 q. 6 hours p.r.n. for fever and mild pain, Wellbutrin 150 mg daily, Xanax 0.5 mg three times a day, allopurinol 100 mg daily. The patient's further management will be depending upon the patient's clinical condition, hemodynamic status and as per the patient response to therapeutic intervention, as per the patient's diagnostic test results, and as per recommendation by all the physicians involved in the care of the patient. Time spent in the entire discharge process, more than 45 minutes. Dictated and electronically signed, not read. Signing off, Amadou Alston MD MTDD
--- NOTE | 2016-12-17 11:33 | PQF GENQUE ---
12/17/16 Dr. Alston, ID physician states that syncope is questionably related to B-cell lymphoma. Do you agree, disagree, with syncope being related to lymphoma? Thank you. Clarification of your documentation is requested to better reflect the severity of illness and intensity of treatment of your patient. Indicators present [] Specify: [] [] Specify: [] [] Specify: [] [] Specify: [] Location in the medical record that reflects the above clinical findings: [] Treatment Provided: [] PHYSICIAN'S RESPONSE Based on your medical judgment of the clinical indicators outlined above please clarify the following: [] Practitioner response [X] If unable to determine, please check the box, sign and date. Present On Admission (POA) Indicator: X] Present at the time of admission [] Not present at the time of admission [X] Clinically Undetermined In responding to this query, please exercise your independent professional judgment. The fact that a question is asked does not imply that any particular answer is desired or expected. Thank you for your clarification on this documentation. If you have any questions please call:[ ] * Thank you, [ ] financial services associate CARLA
--- NOTE | 2016-12-17 11:38 | PQF SEPSIS ---
12/17/16 Dr. Alston, Possible and "rule out" sepsis is documented on consults of 12/12 and 12/13, and on progress note of 12/13. Was sepsis ruled out, ruled in, other? If sepsis was ruled in, was this present on admission? Thank you. Clarification of your documentation is requested to better reflect the severity of illness and intensity of treatment of your patient. Indicators present [] Temp < 96.8 or > 100.4 [] WBC count > 12,000/mm3 or <000/mm3 or 10% immature neutrophils [] Heart Rate > 90 [] Respiratory Rate > 20 [] Fever or hypothermia [] Chills [] Positive blood cultures [] Hypotension [] Metabolic acidosis (Elevated lactate level, anion gap or reduced blood pH) [] Acute confusion /Altered Mental Status [] Shock [X] Other: [X] PLEASE REQUEST ID CENTERLESS GRINDER OPERATOR TO ANSWER THIS QUERY Location in the medical record that reflects the above clinical findings: [] Treatment Provided: [] PHYSICIAN'S RESPONSE Based on your medical judgment of the clinical indicators outlined above, are you treating this patient for a known or suspected: [] Sepsis / Septicemia Please specify organism if known [] [] SIRS (Systemic Inflammatory Response Syndrome) [] Severe Sepsis (Sepsis with Associated Organ Dysfunction) [] Fever of Unknown Origin [X] Other, please indicate: [X] PLEASE REQUEST ID CENTERLESS GRINDER OPERATOR TO ANSWER THIS QUERY [] If Unable to Determine, please check the box, sign and date. Present On Admission (POA) Indicator: [] Present at the time of admission [] Not present at the time of admission [] Clinically Undetermined In responding to this query, please exercise your independent professional judgment. The fact that a question is asked does not imply that any particular answer is desired or expected. Thank you for your clarification on this documentation. If you have any questions please call:[ ] * Thank you, [ ] resource manager CARLA
--- NOTE | 2016-12-24 08:38 | PQF SEPSIS ---
12/17/16 Dr. Ballard, Dr. Alston requests that you answer the following question on this patient: Possible and "rule out" sepsis is documented on consults of 12/12 and 12/13, and on progress note of 12/13. Was sepsis ruled out, ruled in, other? If sepsis was ruled in, was this present on admission? Thank you. Clarification of your documentation is requested to better reflect the severity of illness and intensity of treatment of your patient. Indicators present [] Temp < 96.8 or > 100.4 [x] WBC count > 12,000/mm3 or <000/mm3 or 10% immature neutrophils [x] Heart Rate > 90 [] Respiratory Rate > 20 [] Fever or hypothermia [] Chills [] Positive blood cultures [] Hypotension [] Metabolic acidosis (Elevated lactate level, anion gap or reduced blood pH) [] Acute confusion /Altered Mental Status [] Shock [ Other Location in the medical record that reflects the above clinical findings: [] Treatment Provided: [] PHYSICIAN'S RESPONSE Based on your medical judgment of the clinical indicators outlined above, are you treating this patient for a known or suspected: [] Sepsis / Septicemia Please specify organism if known [] [x] SIRS (Systemic Inflammatory Response Syndrome) [] Severe Sepsis (Sepsis with Associated Organ Dysfunction) [] Fever of Unknown Origin [ ] Other, please indicate: [ [] If Unable to Determine, please check the box, sign and date. Present On Admission (POA) Indicator: [] Present at the time of admission [] Not present at the time of admission [] Clinically Undetermined In responding to this query, please exercise your independent professional judgment. The fact that a question is asked does not imply that any particular answer is desired or expected. Thank you for your clarification on this documentation. If you have any questions please call:[ ] * Thank you, [ ] choir director CARLA
--- NOTE | 2016-12-26 11:03 | PQF SEPSIS ---
12/17/16 Dr. Ballard, Dr. Alston requests that you answer the following question on this patient: Possible and "rule out" sepsis is documented on consults of 12/12 and 12/13, and on progress note of 12/13. Was sepsis ruled out, ruled in, other? If sepsis was ruled in, was this present on admission? Thank you. Clarification of your documentation is requested to better reflect the severity of illness and intensity of treatment of your patient. Indicators present [] Temp < 96.8 or > 100.4 [x] WBC count > 12,000/mm3 or <000/mm3 or 10% immature neutrophils [x] Heart Rate > 90 [] Respiratory Rate > 20 [] Fever or hypothermia [] Chills [] Positive blood cultures [] Hypotension [] Metabolic acidosis (Elevated lactate level, anion gap or reduced blood pH) [] Acute confusion /Altered Mental Status [] Shock [ Other: [] Location in the medical record that reflects the above clinical findings: [] Treatment Provided: [] PHYSICIAN'S RESPONSE Based on your medical judgment of the clinical indicators outlined above, are you treating this patient for a known or suspected: [] Sepsis / Septicemia Please specify organism if known [] [x] SIRS (Systemic Inflammatory Response Syndrome) [] Severe Sepsis (Sepsis with Associated Organ Dysfunction) [] Fever of Unknown Origin [ Other, please indicate: [] If Unable to Determine, please check the box, sign and date. Present On Admission (POA) Indicator: [] Present at the time of admission [] Not present at the time of admission [] Clinically Undetermined In responding to this query, please exercise your independent professional judgment. The fact that a question is asked does not imply that any particular answer is desired or expected. Thank you for your clarification on this documentation. If you have any questions please call:[ ] * Thank you, [ ] banking representative CARLA
--- NOTE | 2016-12-31 10:11 | PQF RENAL ---
12/31/16 Dr. Alston, Per internal auditor, please clarify whether acute kidney failure was present on admission. Patient's creatinine on admission was 1.2, javier to 1.5 on following day, then fell to 0.7 on discharge. Per KDIGO guidelines, patient met criteria for KENZIE when creatinine was 1.2. Thank you. Clarification of your documentation is requested to better reflect the severity of illness and intensity of treatment of your patient. Indicators present [] Oliguria/anuria [] Edema/weight gain [] Hyponatremia [] Confusion/mental status changes [] Increased Blood Urea Nitrogen/Creatinine [] Increased Potassium/Decreased potassium [] Anemia (male <13.5, female <12.0) [] Proteinuria [] Metabolic Acidosis OR Alkalosis [] Hypotension/shock [] Decreased GFR [] Other: [] Location in the medical record that reflects the above clinical findings: PHYSICIAN'S RESPONSE Based on your medical judgment of the clinical indicators outlined above, are you treating this patient for a known or suspected: [] Acute Renal Failure [] Acute Kidney Injury [] Azotemia/prerenal azotemia [] Chronic kidney disease Stage I [] Stage II [] Stage III [] Stage IV [] [] Other condition/diagnosis:[] [X] If Unable to Determine, please check the box, sign and date. Present On Admission (POA) Indicator: [] Present at the time of admission [] Not present at the time of admission [X] Clinically Undetermined In responding to this query, please exercise your independent professional judgment. The fact that a question is asked does not imply that any particular answer is desired or expected. Thank you for your clarification on this documentation. If you have any questions please call:[ ] * Thank you, [ ] superior court judge Chronic Kidney Disease Stages *[employer]* Stage I GFR >90 Stage II GFR 60-89 Stage III GFR 30-59 Stage IV GFR 15-29 Stage V~~~~~~~~~~ GFR <15~~~~~~~~~~~~~ MTDD
== END 2016-12-14 17:27 | DRG 312 ==
LOC: ED 19:58 → ERH 23:13 → 2RSO 12-12 00:15 → 3RNO 12-13 23:59
PROVIDERS: ADMIT Internal Medicine; ATTEND Internal Medicine
DX: R55 Syncope and collapse (principal); N17.9 Acute kidney failure, unspecified; C85.10 Unspecified B-cell lymphoma, unspecified site; I11.0 Hypertensive heart disease with heart failure; R65.10 Systemic inflammatory response syndrome (SIRS) of non-infectious origin without acute organ dysfunction; I50.30 Unspecified diastolic (congestive) heart failure; E10.40 Type 1 diabetes mellitus with diabetic neuropathy, unspecified; F31.81 Bipolar II disorder; I45.2 Bifascicular block; D69.6 Thrombocytopenia, unspecified; I27.20 Pulmonary hypertension, unspecified; D64.9 Anemia, unspecified; F41.0 Panic disorder [episodic paroxysmal anxiety]; R42 Dizziness and giddiness; R26.9 Unspecified abnormalities of gait and mobility; R29.6 Repeated falls; E03.9 Hypothyroidism, unspecified; E78.1 Pure hyperglyceridemia; E78.5 Hyperlipidemia, unspecified; F43.10 Post-traumatic stress disorder, unspecified; G93.89 Other specified disorders of brain; H35.30 Unspecified macular degeneration; I25.10 Atherosclerotic heart disease of native coronary artery without angina pectoris; I45.10 Unspecified right bundle-branch block; Z86.73 Personal history of transient ischemic attack (TIA), and cerebral infarction without residual deficits; I65.29 Occlusion and stenosis of unspecified carotid artery; K21.9 Gastro-esophageal reflux disease without esophagitis; K57.30 Diverticulosis of large intestine without perforation or abscess without bleeding; M19.90 Unspecified osteoarthritis, unspecified site; M25.78 Osteophyte, vertebrae; M47.816 Spondylosis without myelopathy or radiculopathy, lumbar region; W18.30XA Fall on same level, unspecified, initial encounter; Y92.009 Unspecified place in unspecified non-institutional (private) residence as the place of occurrence of the external cause; Y93.01 Activity, walking, marching and hiking; E10.65 Type 1 diabetes mellitus with hyperglycemia; Z79.4 Long term (current) use of insulin; Z79.899 Other long term (current) drug therapy; Z87.442 Personal history of urinary calculi; Z87.891 Personal history of nicotine dependence; Z90.49 Acquired absence of other specified parts of digestive tract; Z90.710 Acquired absence of both cervix and uterus; R40.2412 Glasgow coma scale score 13-15, at arrival to emergency department; K59.00 Constipation, unspecified; K64.9 Unspecified hemorrhoids; R00.0 Tachycardia, unspecified; K55.20 Angiodysplasia of colon without hemorrhage

== ENCOUNTER 2016-12-14 17:31 | Inpatient (IN) | payer OTHER ==
[2016-12-14 19:16] VITALS: BMI 25.5
[2016-12-14] MEDS ORDERED: Cefepime 1gm in NS 100ml 1 GM/100 ML BAG IVPB SCH ×2 (19:30→22:00)
[2016-12-14] MEDS: Insulin Lispro (humaLOG) LOW Coverage SC SCH (22:26)
[2016-12-14] MEDS: Insulin Detemir 100 units/ml Vial (Levemir) SC SCH (22:28)
[2016-12-15] MEDS: Levothyroxine 88 MCG TAB PO SCH (05:54)
[2016-12-15] MEDS: Pantoprazole 40 mg EC Tab PO SCH (05:54)
[2016-12-15 07:00] LABS: HEMATOCRIT 36.8 % (36.0-48.0); MEAN CELL VOLUME 89.3 fl (80.0-105.0); MEAN CORPUSCULAR HEMOGLOBIN 29.6 pg (25.0-35.0); MEAN CORPUSCULAR HGB CONC 33.2 g/dl (31.0-37.0); MEAN PLATELET VOLUME 11.7 fl (7.0-11.0); RED CELL DISTRIBUTION WIDTH 15.4 % (11.5-14.5)
[2016-12-15] MEDS: Insulin Lispro (humaLOG) LOW Coverage SC SCH ×4 (07:02→21:26)
[2016-12-15 07:12] LABS: ALB/GLOB RATIO 1.5 (1.1-1.8); ALKALINE PHOSPHATASE 108 U/L (38-126); ALT/SGPT 22 U/L (7-56); AST/SGOT 26 U/L (14-36); BILIRUBIN,DIRECT 0.3 mg/dL (0.0-0.4); BILIRUBIN,TOTAL 0.5 mg/dL (0.2-1.3); BLOOD UREA NITROGEN 10 mg/dL (7-21); CALCIUM 9.4 mg/dL (8.4-10.5); CARBON DIOXIDE 29 mmol/L (21-33); CHLORIDE 103 mmol/L (98-107); GFR AFRICAN-AMERICAN > 60; GLUCOSE,RANDOM 202 mg/dL (70-110); MAGNESIUM 1.9 mg/dL (1.7-2.2); PHOSPHOROUS 3.5 mg/dL (2.5-4.5); POTASSIUM 4.1 mmol/L (3.6-5.0); SODIUM 142 mmol/L (132-148); TOTAL PROTEIN 6.8 g/dL (5.8-8.3); URIC ACID 4.2 mg/dL (2.5-6.2)
[2016-12-15] MEDS: Lidocaine 5% Patch TD SCH (09:06)
[2016-12-15] MEDS: buPROPion 150 mg/24 Hours XL Tab PO SCH (09:11)
[2016-12-15] MEDS: POLYETHYLENE GLYCOL 3350 17 GM/Dose PACKET PO SCH ×2 (09:12→17:03)
[2016-12-15] MEDS ORDERED: Levothyroxine 88 MCG TAB PO SCH (10:00)
[2016-12-15] MEDS ORDERED: Pantoprazole 40 mg EC Tab PO SCH (14:00)
[2016-12-15] MEDS: Cefepime 1gm in NS 100ml 1 GM/100 ML BAG IVPB SCH ×2 (14:04→22:10)
--- NOTE | 2016-12-15 16:22 | CON ---
DATE: 12/15/2016 LOCATION: The patient is seen in room 319. CHIEF COMPLAINT: Weakness times several days. HISTORY OF PRESENT ILLNESS: This is an 86-year-old female who is transferred from acute care with past medical history significant for diabetes mellitus, hypertension, hypothyroidism, diverticulitis, gastroesophageal reflux disease, degenerative joint disease, depression, anxiety, history of cholecystectomy, history of hysterectomy and the patient also with history of B-cell lymphoma, who was admitted to the acute care because of syncopal episode. She had a workup. The patient has white count of 22,000 with considered secondary to the lymphoma, antibiotics were given and cultures were done. Urine and blood cultures were negative and stool for C. diff, was also negative antigen and toxin. The patient at this point, has no fevers or chills. She is complaining of weakness. PAST MEDICAL HISTORY: Significant for degenerative joint disease, depression, diabetes, diverticulitis, hypertension, anxiety, B-cell lymphoma, gastroesophageal reflux disease and hypothyroidism. PAST SURGICAL HISTORY: Significant for cholecystectomy and hysterectomy. MEDICATIONS: Reviewed. ALLERGIES: THE PATIENT HAS NO KNOWN ALLERGIES. PHYSICAL EXAMINATION: GENERAL: The patient is in bed. She appears to be comfortable. VITAL SIGNS: Temperature of 98, heart rate of 78, respiratory rate of 20, blood pressure is 160/70. HEENT: Unremarkable. NECK: Supple. LUNGS: Have decreased breath sounds. HEART: Normal S1, S2. ABDOMEN: Soft, nontender. LABORATORY EXAMINATION: Reveals a white count today is 13,000, hemoglobin of 36 with platelets of 108. Coagulation is noted. Chemistries reveals a BUN of 10, creatinine of 0.8. Random glucose is 202. LFTs are normal and the patient had a procalcitonin which was 0.53. Urinalysis was unremarkable except for 20 to 25 wbc's and moderate leukocyte esterase and moderate bacteria. The patient did have a H. pylori positive in the past by serology and review of the cultures reveals the blood cultures in the past have also been negative and this admission was also negative in the acute care with a negative urine culture. ASSESSMENT AND PLAN: This is an 86-year-old with leukocytosis, B-cell lymphoma, syncope, diabetes mellitus, hypertension, hypothyroidism, history of diverticulitis, anxiety, degenerative joint disease. All cultures are negative, mildly elevated procalcitonin, currently on cefepime. Leukocytosis improved with the antibiotics, although the cultures have been negative. The patient had negative CAT scan of the abdomen and pelvis. Nodular densities are seen on the CAT scan of the chest. Today is day #4 of cefepime. We will complete 4 to 7 days and follow with the wbc's. We will change the cefepime from q.24 hours to q.8. Today is day #4 of 4 to 7 days. We will follow the wbc count. Surya Lai MD
[2016-12-15] MEDS: Insulin Detemir 100 units/ml Vial (Levemir) SC SCH (21:26)
[2016-12-16] MEDS: Cefepime 1gm in NS 100ml 1 GM/100 ML BAG IVPB SCH ×3 (05:23→22:15)
[2016-12-16] MEDS: Pantoprazole 40 mg EC Tab PO SCH (05:24)
[2016-12-16] MEDS: Levothyroxine 88 MCG TAB PO SCH (05:24)
[2016-12-16] MEDS: Insulin Lispro (humaLOG) LOW Coverage SC SCH ×4 (07:22→22:11)
[2016-12-16 08:21] LABS: BASO # 0.02 K/mm3 (0.0-2.0); BASO % 0.1 % (0.0-3.0); EOS # 0.1 (0.0-0.7); EOS % 0.5 % (1.5-5.0); GRAN # 4.1 (1.4-6.5); GRAN % 28.5 % (50.0-68.0); HEMATOCRIT 34.2 % (36.0-48.0); LYMPH # 9.6 (1.2-3.4); LYMPH % 66.3 % (22.0-35.0); MEAN CELL VOLUME 89.3 fl (80.0-105.0); MEAN CORPUSCULAR HEMOGLOBIN 30.3 pg (25.0-35.0); MEAN CORPUSCULAR HGB CONC 33.9 g/dl (31.0-37.0); MEAN PLATELET VOLUME 12.3 fl (7.0-11.0); MONO # 0.7 (0.1-0.6); MONO % 4.6 % (1.0-6.0); RED CELL DISTRIBUTION WIDTH 15.4 % (11.5-14.5); WHITE BLOOD COUNT 14.4 10^3/ul (4.5-11.0)
[2016-12-16 08:31] LABS: ALB/GLOB RATIO 1.4 (1.1-1.8); ALKALINE PHOSPHATASE 104 U/L (38-126); ALT/SGPT 23 U/L (7-56); AST/SGOT 16 U/L (14-36); BILIRUBIN,DIRECT 0.3 mg/dL (0.0-0.4); BILIRUBIN,TOTAL 0.4 mg/dL (0.2-1.3); BLOOD UREA NITROGEN 16 mg/dL (7-21); CALCIUM 9.1 mg/dL (8.4-10.5); CARBON DIOXIDE 26 mmol/L (21-33); CHLORIDE 105 mmol/L (98-107); GFR AFRICAN-AMERICAN > 60; GLUCOSE,RANDOM 189 mg/dL (70-110); MAGNESIUM 1.9 mg/dL (1.7-2.2); PHOSPHOROUS 3.8 mg/dL (2.5-4.5); POTASSIUM 4.4 mmol/L (3.6-5.0); SODIUM 143 mmol/L (132-148); TOTAL PROTEIN 6.3 g/dL (5.8-8.3)
--- NOTE | 2016-12-16 09:38 | HP ---
HISTORY OF PRESENT ILLNESS: The patient is now transferred to Transitional Care Unit after completion of acute floor treatment. The patient is seen in the room 319 bed #1. The patient is out of bed to chair. The patient is watching TV. The patient is comfortable and no distress noted. Overnight nurse's notes were reviewed. No adverse events documented. The patient has possibly declined wearing the SANTOS stockings. The patient is seen sitting up in the recliner. PHYSICAL EXAMINATION: VITAL SIGNS: T-max 97.2, pulse 80, blood pressure 154/82, pulse ox 95% to 96%. HEAD: Normocephalic, atraumatic. HEENT: Shows pinkish pale conjunctivae. Anicteric sclerae. No oropharyngeal lesion. NECK: No neck rigidity. CHEST: Kyphosis. LUNGS: Shows no rales, crackles, or wheezing. CARDIOVASCULAR: S1, S2, regular rhythm. ABDOMEN: Soft, slightly protuberant. Positive bowel sound. GENITALIA: Female. RECTAL: Deferred. EXTREMITIES: Shows missing SANTOS stockings. No pitting edema. No calf tenderness. No Lucio's sign. NEUROLOGIC: The patient is alert, awake, oriented x3. Cranial nerves II-XII intact. Gait examination not tested. MUSCULOSKELETAL: Shows a body mass index of 25.6. PSYCHIATRIC: Positive history of anxiety, depression, bipolar disorder. LABORATORY DATA: WBC 13, hemoglobin/hematocrit 12.2/37, platelet 110,000. Chemistry is abnormal for a glucose of 202. Rest of the CMP, LFTs, magnesium, phosphorus, uric acid are within normal limit. IMPRESSION AND PLAN 1. Gait dysfunction. 2. Deconditioning. 3. Thrombocytopenia. 4. Leukocytosis. 5. History of B-cell lymphoma. 6. Syncope. 7. Gait dysfunction. 8. Acute exacerbation of vertigo and (resolved). 9. Recurrent falls. 10. Right-sided abdominal wall muscular contusion and muscular pain. 11. Thrombocytopenia. 12. Insulin-requiring diabetes mellitus. 13. Hyperuricemia. 14. Anxiety disorder. 15. Depression. 16. Hyperthyroidism. 17. Gastroesophageal reflux. 18. History of constipation. 19. Dyslipidemia. 20. Vertigo. PLAN: At this time, the patient is to be continued on transitional care unit. The patient consult request has been with Psychiatry and Infectious Disease. CURRENT MEDICATIONS: 1. Allopurinol 100 mg daily. 2. Xanax 0.5 mg three times a day. 3. Wellbutrin 150 mg daily. 4. Tylenol 650 q. 6 p.r.n. 5. Synthroid 88 mcg daily. 6. Risperdal 0.25 mg twice a day. 7. Protonix 40 mg daily. 8. MiraLax 17 g twice a day. 9. Atropine 1 g IV q. 8. 10. Lipitor 10 mg daily. 11. Lidoderm 5% patch to the right flank abdominal wall area. 12. Levemir 30 units subcu at bedtime. 13. Humalog low-dose sliding scale coverage a.c. and at bedtime with fingerstick blood sugar a.c. and at bedtime. 14. Folic acid 1 mg daily. 15. Ecotrin 81 mg daily. 16. Coreg 6.25 mg twice a day. 17. Antivert 25 mg three times a day. PLAN: At present, the patient is to be continued and followed by Psychiatry and Infectious Disease regarding the further optimization of therapy. The patient has been ordered Transitional Care Unit physical therapy, occupational therapy, ambulation therapy, gait training. The patient has been advised to comply with all the physician and nursing recommendations and orders. Dictated and electronically signed, not read. Amadou Alston MD
[2016-12-16] MEDS: POLYETHYLENE GLYCOL 3350 17 GM/Dose PACKET PO SCH ×2 (10:38→17:40)
[2016-12-16] MEDS: buPROPion 150 mg/24 Hours XL Tab PO SCH (10:38)
[2016-12-16] MEDS: Lidocaine 5% Patch TD SCH (10:38)
--- NOTE | 2016-12-16 14:06 | PN ---
DATE: 12/16/2016 SUBJECTIVE: The patient is seen in room 319, bed 1. The patient is being assisted by the physical therapy from the wheelchair to the walker to ambulate. The patient is able to stand up without assistance and able to ambulate with a walker. Overnight nurses notes were reviewed. No adverse event documented. The patient has agreed to put on the SANTOS stockings today. PHYSICAL EXAMINATION: VITAL SIGNS: T-max 98.8, pulse 72, blood pressure 143/80, 133/75, 153/68, respiration 18, O2 sat 97%. HEENT: Head examination normocephalic and atraumatic. HEENT examination shows pink conjunctivae. Anicteric sclerae. No oropharyngeal lesion. NECK: No neck rigidity. CHEST: Kyphosis. LUNGS: Shows no rales, crackles, or wheezing. CARDIOVASCULAR: S1, S2, regular rhythm. ABDOMEN: Soft, slightly protuberant, nontender. GENITALIA: Female. RECTAL: Deferred. EXTREMITIES: Shows no pitting edema. No calf tenderness. No Homans' sign. Positive SANTOS stockings. MUSCULOSKELETAL: Shows a body mass index of 26. Cranial nerves II-XII intact. Gait examination is assisted with walker. The patient is able to ambulate with a walker. Motor strength is 5/5 upper and lower extremity. PSYCHIATRIC: Positive for anxiety and depression. Positive for type 2 bipolar disorder. DIAGNOSTICS: On 12/16/2016; WBC 14.4, hemoglobin/hematocrit 11.6/34.2, platelet 124, segs 28%, granulocytes 66%. Sodium 143, potassium 4.4, chloride 105, CO2 26, anion gap 16, BUN 16, creatinine 0.8, GFR greater than 60, glucose 189, 132, 228, 211, 202, uric acid 4.2, calcium 9.1, phosphorus 3.8, magnesium 1.9. LFTs are completely normal. IMPRESSION AND PLAN: 1. Deconditioning. 2. Gait dysfunction. 3. Status post fall. 4. Syncope, etiology undetermined. 5. Leukocytosis with B-cell lymphoma. 6. Lymphocytosis. 7. Hypertension. 8. Insulin-requiring diabetes mellitus with hyperglycemia. 9. Thrombocytopenia. 10. Acute exacerbation of vertigo and dizziness. 11. Dyslipidemia. 12. Constipation. 13. Hypothyroidism. 14. Depression and anxiety. 15. Hyperuricemia, which has resolved. The patient's allopurinol will be discontinued. The patient at present will be continued on TCU stay till certified days and approved days. Current consultation Infectious Disease and Psychiatry. MEDICATIONS: 1. Antivert 25 mg three times a day. 2. Coreg 6.25 mg twice a day. 3. Ecotrin 81 mg daily. 4. Folic acid 1 mg daily. 5. Humalog low-dose sliding scale coverage. 6. Levemir 30 units h.s. 7. Lidoderm 5% patch daily. 8. Lipitor 10 mg daily. 9. Cefepime 1 g IV q.8. 10. MiraLax 17 g twice a day. 11. Protonix 40 mg daily. 12. Risperdal 0.25 mg twice a day. 13. Synthroid 88 mcg daily. 14. Tylenol p.r.n. 15. Wellbutrin 150 mg daily. 16. Xanax 0.5 mg three times a day. 17. Allopurinol discontinued. DIET: Consistent carbohydrate. Out of bed to chair ordered. Physical therapy and occupational therapy ordered. The patient will be continued on transitional care unit till approved number of days. The patient will continue on physical therapy, occupational therapy, ambulation therapy, gait therapy. Dictated and electronically signed, not read. Amadou Alston MD
--- NOTE | 2016-12-16 18:34 | CP.PCM.PN ---
Subjective - Date & Time of Evaluation Date of Evaluation: 12/16/16 Time of Evaluation: 17:35 - Subjective Subjective: No fevers, not in distress. Objective - Vital Signs/Intake and Output Vital Signs (last 24 hours): Temp Pulse Resp BP Pulse Ox 98.8 F 72 18 149/80 97 12/15/16 18:00 12/15/16 18:03 12/15/16 18:00 12/16/16 10:37 12/15/16 16:30 Intake and Output: 12/16/16 12/16/16 06:59 18:59 Intake Total 420 Balance 420 - Medications Medications: Current Medications Acetaminophen (Tylenol 325mg Tab) 650 mg PO Q6H PRN; Protocol PRN Reason: Pain, Mild (1-3) Alprazolam (Xanax) 0.5 mg PO TID [facility] Last Admin: 12/16/16 13:52 Dose: 0.5 mg Aspirin (Ecotrin) 81 mg PO DAILY LEYLA PRN Reason: Protocol Last Admin: 12/16/16 10:37 Dose: 81 mg Atorvastatin Calcium (Lipitor) 10 mg PO DIN [facility] Last Admin: 12/15/16 17:03 Dose: 10 mg Bupropion HCl (Wellbutrin Xl) 150 mg PO QAM LEYLA PRN Reason: Protocol Last Admin: 12/16/16 10:38 Dose: 150 mg Carvedilol (Coreg) 6.25 mg PO BID LEYLA PRN Reason: Protocol Last Admin: 12/16/16 10:37 Dose: 6.25 mg Folic Acid (Folic Acid) 1 mg PO DAILY LEYLA PRN Reason: Protocol Last Admin: 12/16/16 10:37 Dose: 1 mg Cefepime HCl (Maxipime 1gm) 1 gm in 100 mls @ 100 mls/hr IVPB Q8 LEYLA PRN Reason: Protocol Stop: 12/19/16 14:01 Last Admin: 12/16/16 13:51 Dose: 100 mls/hr Insulin Detemir (Levemir) 30 unit SC HS LEYLA PRN Reason: Protocol Last Admin: 12/15/16 21:26 Dose: Not Given Insulin Human Lispro (Humalog Low) 0 units SC ACHS LEYLA PRN Reason: Protocol Last Admin: 12/16/16 12:12 Dose: 2 units Levothyroxine Sodium (Synthroid) 88 mcg PO 0600 LEYLA PRN Reason: Protocol Last Admin: 12/16/16 05:24 Dose: 88 mcg Lidocaine (Lidoderm) 1 ea TD DAILY LEYLA PRN Reason: Protocol Last Admin: 12/16/16 10:38 Dose: 1 ea Meclizine HCl (Antivert) 25 mg PO TID LEYLA PRN Reason: Protocol Last Admin: 12/16/16 13:51 Dose: 25 mg Pantoprazole Sodium (Protonix Ec Tab) 40 mg PO 0600 LEYLA PRN Reason: Protocol Last Admin: 12/16/16 05:24 Dose: 40 mg Polyethylene Glycol (Miralax) 17 gm PO BID LEYLA PRN Reason: Protocol Last Admin: 12/16/16 10:38 Dose: 17 gm Risperidone (Risperdal Tab) 0.25 mg PO BID LEYLA PRN Reason: Protocol Last Admin: 12/16/16 10:38 Dose: 0.25 mg - Labs Labs: 12/16/16 08:00 12/16/16 08:00 - Constitutional Appears: Non-toxic, No Acute Distress - Head Exam Head Exam: NORMAL INSPECTION - ENT Exam ENT Exam: Mucous Membranes Moist - Neck Exam Neck Exam: absent: Meningismus - Respiratory Exam Respiratory Exam: Decreased Breath Sounds - Cardiovascular Exam Cardiovascular Exam: +S1, +S2 - GI/Abdominal Exam GI & Abdominal Exam: Soft. absent: Tenderness Assessment and Plan - Assessment and Plan (Free Text) Plan: Assessment Leukocytosis, consider related to her B-cell lymphoma, R/O sepsis from pneumonia syncopal episode, etiology to be determined DM HTN hypothyroidism history of diverticulitis GERD degenerative joint disease history of depression and anxiety S/P cholecystectomy S/P hysterectomy history of B-cell lymphoma Plan on Cefepime (day 5) to complete 4-7 days of therapy; cultures are negative; CT abdomen and pelvis did not reveal acute pathology, CT chest showed nodules in the lungs will continue to monitor clinically
[2016-12-16] MEDS: Insulin Detemir 100 units/ml Vial (Levemir) SC SCH (22:14)
[2016-12-17] MEDS: Levothyroxine 88 MCG TAB PO SCH (05:17)
[2016-12-17] MEDS: Pantoprazole 40 mg EC Tab PO SCH (05:17)
[2016-12-17] MEDS: Cefepime 1gm in NS 100ml 1 GM/100 ML BAG IVPB SCH ×3 (05:17→21:36)
[2016-12-17] MEDS: Insulin Lispro (humaLOG) LOW Coverage SC SCH ×4 (06:33→21:38)
--- NOTE | 2016-12-17 09:15 | CON ---
DATE: 12/16/2016 PSYCHIATRIC CONSULTATION HISTORY OF PRESENT ILLNESS: The patient is an 86-year-old female. I reviewed the chart. She is currently being treated on Transitional Care Unit following an episodes of possible sepsis infection or systemic inflammatory response, urinary infection. The patient has a long history of bipolar type II disorder. Currently, she is sitting on the chair. She is awake and alert. PAST MEDICAL HISTORY: The patient's past history also includes lymphoma, history of vertigo. The patient has a history of gait dysfunction, deconditioning, thrombocytopenia, leukocytosis, right-sided abdominal wall muscle contusion, muscular pain, insulin-dependent diabetes mellitus and dyslipidemia. PERSONAL HISTORY: She has a large family with many children, grandchildren and great grandchildren. She has been for approximately 30 years. She lives with her family. REVIEW OF SYSTEMS: The patient's 12-point review of systems includes weakness upon standing, pain on her right hip. Rest of 12-point review is noncontributory. CURRENT MEDICATIONS: The patient's current medications include Antivert 25 mg t.i.d., Coreg 25 mg b.i.d., Ecotrin 81 mg daily, folate, Levemir 30 units subcu at bedtime, Lipitor 10 mg daily, lidocaine patch, Maxipime 1 g IV q. 8 hours., Protonix, Risperdal 0.25 mg b.i.d., Synthroid 88 mcg daily, and Xanax 0.5 mg t.i.d. PHYSICAL EXAMINATION VITAL SIGNS: Her blood pressure 149/80, pulse 72, afebrile, respirations 18 per minute. NEUROLOGIC: Mental status reveals she is awake, alert, coherent, oriented x3. Sitting on a wheelchair, recognizes me, with recent history and reasons for being in the hospital and remembers falling at home due to dizziness. The patient has no hallucination, paranoia as well as depression. LABORATORY DATA: The patient's most recent laboratory data white count is 14,400, hemoglobin 11.6, platelet count 124,000. Metabolic profiles are normal except for random glucose of 189. IMPRESSION: She has bipolar disorder, in remission. She has status post fall, status post syncopal episode, insulin-dependent diabetes mellitus, lymphoma, leukocytosis, recent septic infection, hyperlipidemia. The patient has history of hypothyroidism, chronic pain due to fall. PLAN: We will review psychotropic medicine. Monitor mental status. Toro Carr MD
[2016-12-17] MEDS: Lidocaine 5% Patch TD SCH (10:36)
[2016-12-17] MEDS: POLYETHYLENE GLYCOL 3350 17 GM/Dose PACKET PO SCH (10:37)
[2016-12-17] MEDS: buPROPion 150 mg/24 Hours XL Tab PO SCH (11:22)
--- NOTE | 2016-12-17 11:26 | CP.PCM.PN ---
Subjective - Date & Time of Evaluation Date of Evaluation: 12/17/16 Time of Evaluation: 11:10 - Subjective Subjective: Comfortable on a chair, not in distress, no fevers, no diarrhea. Objective - Vital Signs/Intake and Output Vital Signs (last 24 hours): Temp Pulse Resp BP Pulse Ox 98.2 F 78 16 129/55 L 95 12/17/16 06:00 12/17/16 06:00 12/17/16 06:00 12/17/16 06:00 12/17/16 06:00 - Medications Medications: Current Medications Acetaminophen (Tylenol 325mg Tab) 650 mg PO Q6H PRN; Protocol PRN Reason: Pain, Mild (1-3) Alprazolam (Xanax) 0.5 mg PO TID [facility] Last Admin: 12/16/16 17:44 Dose: 0.5 mg Aspirin (Ecotrin) 81 mg PO DAILY LEYLA PRN Reason: Protocol Last Admin: 12/16/16 10:37 Dose: 81 mg Atorvastatin Calcium (Lipitor) 10 mg PO DIN [facility] Last Admin: 12/16/16 17:43 Dose: 10 mg Bupropion HCl (Wellbutrin Xl) 150 mg PO QAM LEYLA PRN Reason: Protocol Last Admin: 12/16/16 10:38 Dose: 150 mg Carvedilol (Coreg) 6.25 mg PO BID LEYLA PRN Reason: Protocol Last Admin: 12/16/16 17:43 Dose: Not Given Folic Acid (Folic Acid) 1 mg PO DAILY LEYLA PRN Reason: Protocol Last Admin: 12/16/16 10:37 Dose: 1 mg Cefepime HCl (Maxipime 1gm) 1 gm in 100 mls @ 100 mls/hr IVPB Q8 LEYLA PRN Reason: Protocol Stop: 12/19/16 14:01 Last Admin: 12/17/16 05:17 Dose: 100 mls/hr Insulin Detemir (Levemir) 30 unit SC HS LEYLA PRN Reason: Protocol Last Admin: 12/16/16 22:14 Dose: Not Given Insulin Human Lispro (Humalog Low) 0 units SC ACHS LEYLA PRN Reason: Protocol Last Admin: 12/17/16 06:33 Dose: 2 units Levothyroxine Sodium (Synthroid) 88 mcg PO 0600 LEYLA PRN Reason: Protocol Last Admin: 12/17/16 05:17 Dose: 88 mcg Lidocaine (Lidoderm) 1 ea TD DAILY LEYLA PRN Reason: Protocol Last Admin: 12/16/16 10:38 Dose: 1 ea Meclizine HCl (Antivert) 25 mg PO TID LEYLA PRN Reason: Protocol Last Admin: 12/16/16 17:43 Dose: 25 mg Pantoprazole Sodium (Protonix Ec Tab) 40 mg PO 0600 LEYLA PRN Reason: Protocol Last Admin: 12/17/16 05:17 Dose: 40 mg Polyethylene Glycol (Miralax) 17 gm PO BID LEYLA PRN Reason: Protocol Last Admin: 12/16/16 17:40 Dose: Not Given Risperidone (Risperdal Tab) 0.25 mg PO BID LEYLA PRN Reason: Protocol Last Admin: 12/16/16 17:44 Dose: 0.25 mg - Labs Labs: 12/16/16 08:00 12/16/16 08:00 - Constitutional Appears: Non-toxic, No Acute Distress - Head Exam Head Exam: NORMAL INSPECTION - ENT Exam ENT Exam: Mucous Membranes Moist - Neck Exam Neck Exam: absent: Meningismus - Respiratory Exam Respiratory Exam: Decreased Breath Sounds - Cardiovascular Exam Cardiovascular Exam: +S1, +S2 - GI/Abdominal Exam GI & Abdominal Exam: Soft. absent: Tenderness Assessment and Plan - Assessment and Plan (Free Text) Plan: Assessment Leukocytosis, consider related to her B-cell lymphoma, R/O sepsis from pneumonia syncopal episode, etiology to be determined DM HTN hypothyroidism history of diverticulitis GERD degenerative joint disease history of depression and anxiety S/P cholecystectomy S/P hysterectomy history of B-cell lymphoma Plan on Cefepime (day 5) to complete 4-7 days of therapy; cultures are negative; CT abdomen and pelvis did not reveal acute pathology, CT chest showed nodules in the lungs will continue to follow clinically
[2016-12-17] MEDS: Lactobacillus Acidophilus 500 MU Cap PO SCH (15:27)
--- NOTE | 2016-12-17 15:38 | PN ---
DATE: SUBJECTIVE: The patient is an 86-year-old female, currently being treated on Transitional Care Unit following infection and leukocytosis. She is on IV antibiotics. The patient states she slept poorly last night due to discomfort and pain in the right flank and hip area as a result of contusion from a fall. PHYSICAL EXAMINATION: GENERAL: The patient is alert and oriented x3. Recognizes me. Her demeanor is slightly withdrawn, but she is oriented x3 cooperating with physical therapy. VITAL SIGNS: Blood pressure is 136/73, pulse 89, afebrile, respirations 16 per minute and O2 saturation 95% on room air. CURRENT MEDICATIONS: Include Antivert, Coreg, Ecotrin, folate, Levemir, Lidoderm, Lipitor, Maxipime IV, Protonix, Risperdal 0.25 mg b.i.d., Synthroid 88 mcg daily, Wellbutrin 150 mg q. a.m. and Xanax 0.5 mg t.i.d. ASSESSMENT: The patient has history of bipolar II disorder, history of recent fall with contusion to right hip. She has a history of a lymphoma. She has a history of receiving IV antibiotics. The patient has a history of diabetes mellitus, hypertension, gastroesophageal reflux disease and degenerative joint disease. The patient is continuing on IV antibiotics. PLAN: We will give a dose of Tramadol at bedtime to night. Hopefully, the patient will be more comfortable when we reevaluate tomorrow. Toro Carr MD
[2016-12-17] MEDS: Insulin Detemir 100 units/ml Vial (Levemir) SC SCH (21:39)
--- NOTE | 2016-12-17 23:07 | PN ---
DATE OF SERVICE: 12/17/2016 SUBJECTIVE: The patient is seen in room #319, bed #1. The patient is sitting up out of bed to chair. The patient is alert, awake, responsive. The patient states that the patient is having intermittent right-sided abdominal wall pain which is less since initial hospitalization. The patient denies any nausea, vomiting, denies any hemoptysis, denies any melena, denies any chest pain, denies any shortness of breath. Overnight nurses' notes were reviewed. All 13-system review was done. Pertinent positive and negative are dictated above. Fingerstick blood sugar averaging around high 100s to low 100s. OBJECTIVE: VITAL SIGNS: T-max 97.9, pulse 71 to 83 beats per minute, blood pressure 130 to 140/70, O2 saturation 98% to 100%. HEENT: Head, normocephalic, atraumatic. HEENT examination shows pinkish conjunctivae, anicteric sclerae, no oropharyngeal lesion. NECK: No neck rigidity. CHEST: Kyphosis. LUNGS: Examination shows no rales, crackles, or wheezing. CARDIOVASCULAR: S1 and S2, regular rhythm. No audible murmur, gallop, or rub. ABDOMEN: Soft, nondistended. No costovertebral angle tenderness. Questionable slight right-sided abdominal wall muscle tenderness. No rebound tenderness. GENITALIA: Female. RECTAL: Deferred. EXTREMITIES: Show positive SANTOS stockings. No pitting edema. No calf tenderness. No Homans sign. NEUROLOGIC: The patient is alert, awake, oriented x3, is able to move upper and lower extremity without assistance. Gait examination not tested today. PSYCHIATRIC: Examination as per psychiatrist evaluation notes and recommendation. DIAGNOSTIC STUDIES: None from today. IMPRESSION: 1. Deconditioning. 2. Gait dysfunction. 3. Status post syncope, etiology undetermined. 4. Hypertension. 5. Insulin-requiring diabetes mellitus. 6. Bipolar disorder. 7. Anxiety and depression. 8. Vertigo. 9. Dyslipidemia. 10. Gastroesophageal reflux. 11. Hypothyroidism. 12. Right-sided abdominal wall musculoskeletal pain. PLAN: At this time, the patient is to be continued on TCU stay. The patient has been encouraged to participate in physical therapy, occupational therapy, ambulation therapy, gait training. The patient will be continued on Antivert 25 mg 3 times a day, Coreg 6.25 mg twice a day, Ecotrin 81 mg daily, folic acid 1 mg daily, Humalog low-dose sliding scale coverage, Levemir 30 units subcutaneous at bedtime, Lidoderm 5% patch to the abdominal wall muscle area every day, Lipitor 10 mg daily, cefepime 1 g IV q.8, Protonix 40 mg daily, Risperdal 0.25 mg twice a day at 10:00 a.m. and 10:00 p.m., Synthroid 88 mcg p.o. daily, Tylenol 650 q.6 p.r.n., Ultram or tramadol 50 mg at bedtime ordered by Dr. Carr, Wellbutrin 150 mg in the morning, Xanax 0.5 mg at 10:00 a.m., 04:00 p.m., and 10:00 p.m. The patient will be continued on the above therapeutic intervention with physical therapy, ambulation therapy, gait therapy. Amadou Alston MD
[2016-12-18] MEDS: Cefepime 1gm in NS 100ml 1 GM/100 ML BAG IVPB SCH ×3 (05:16→21:14)
[2016-12-18] MEDS: Levothyroxine 88 MCG TAB PO SCH (05:17)
[2016-12-18] MEDS: Pantoprazole 40 mg EC Tab PO SCH (05:17)
[2016-12-18] MEDS: Insulin Lispro (humaLOG) LOW Coverage SC SCH ×4 (06:45→21:13)
[2016-12-18] MEDS: buPROPion 150 mg/24 Hours XL Tab PO SCH (09:04)
[2016-12-18] MEDS: Lidocaine 5% Patch TD SCH (09:06)
[2016-12-18 09:40] LABS: BASO # 0.04 K/mm3 (0.0-2.0); BASO % 0.2 % (0.0-3.0); EOS # 0.1 (0.0-0.7); EOS % 0.6 % (1.5-5.0); GRAN # 5.18 (1.4-6.5); GRAN % 31.6 % (50.0-68.0); HEMATOCRIT 36.5 % (36.0-48.0); LYMPH # 10.4 (1.2-3.4); LYMPH % 62.9 % (22.0-35.0); MEAN CELL VOLUME 90.1 fl (80.0-105.0); MEAN CORPUSCULAR HEMOGLOBIN 29.6 pg (25.0-35.0); MEAN CORPUSCULAR HGB CONC 32.9 g/dl (31.0-37.0); MEAN PLATELET VOLUME 12.1 fl (7.0-11.0); MONO # 0.8 (0.1-0.6); MONO % 4.7 % (1.0-6.0); RED CELL DISTRIBUTION WIDTH 15.5 % (11.5-14.5); WHITE BLOOD COUNT 16.5 10^3/ul (4.5-11.0)
[2016-12-18 09:53] LABS: ALB/GLOB RATIO 1.4 (1.1-1.8); ALKALINE PHOSPHATASE 108 U/L (38-126); ALT/SGPT 27 U/L (7-56); AST/SGOT 16 U/L (14-36); BILIRUBIN,DIRECT 0.5 mg/dL (0.0-0.4); BILIRUBIN,TOTAL 0.6 mg/dL (0.2-1.3); BLOOD UREA NITROGEN 18 mg/dL (7-21); CALCIUM 9.1 mg/dL (8.4-10.5); CARBON DIOXIDE 23 mmol/L (21-33); CHLORIDE 107 mmol/L (98-107); GFR AFRICAN-AMERICAN > 60; GLUCOSE,RANDOM 229 mg/dL (70-110); POTASSIUM 4.1 mmol/L (3.6-5.0); SODIUM 143 mmol/L (132-148); TOTAL PROTEIN 7.1 g/dL (5.8-8.3)
[2016-12-18] MEDS: Lactobacillus Acidophilus 500 MU Cap PO SCH ×2 (09:59→17:22)
--- NOTE | 2016-12-18 13:03 | CP.PCM.PN ---
Subjective - Date & Time of Evaluation Date of Evaluation: 12/18/16 Time of Evaluation: 11:10 - Subjective Subjective: Comfortable on a chair, no fevers. Objective - Vital Signs/Intake and Output Vital Signs (last 24 hours): Temp Pulse Resp BP Pulse Ox 98.0 F 68 16 120/62 95 12/18/16 05:31 12/18/16 09:08 12/18/16 05:31 12/18/16 09:08 12/18/16 05:31 Intake and Output: 12/18/16 12/18/16 06:59 18:59 Intake Total 620 Balance 620 - Medications Medications: Current Medications Acetaminophen (Tylenol 325mg Tab) 650 mg PO Q6H PRN; Protocol PRN Reason: Pain, Mild (1-3) Last Admin: 12/17/16 10:51 Dose: 650 mg Alprazolam (Xanax) 0.5 mg PO 1000,1600,2200 [facility] Last Admin: 12/18/16 09:05 Dose: 0.5 mg Aspirin (Ecotrin) 81 mg PO DAILY [facility] PRN Reason: Protocol Last Admin: 12/18/16 09:02 Dose: 81 mg Atorvastatin Calcium (Lipitor) 10 mg PO DIN [facility] Last Admin: 12/17/16 17:57 Dose: 10 mg Bupropion HCl (Wellbutrin Xl) 150 mg PO QAM [facility] PRN Reason: Protocol Last Admin: 12/18/16 09:04 Dose: 150 mg Carvedilol (Coreg) 6.25 mg PO BID [facility] PRN Reason: Protocol Last Admin: 12/18/16 09:08 Dose: 6.25 mg Folic Acid (Folic Acid) 1 mg PO DAILY [facility] PRN Reason: Protocol Last Admin: 12/18/16 09:06 Dose: 1 mg Cefepime HCl (Maxipime 1gm) 1 gm in 100 mls @ 100 mls/hr IVPB Q8 [facility] PRN Reason: Protocol Stop: 12/19/16 14:01 Last Admin: 12/18/16 05:16 Dose: 100 mls/hr Insulin Detemir (Levemir) 30 unit SC HS [facility] PRN Reason: Protocol Last Admin: 12/17/16 21:39 Dose: 30 unit Insulin Human Lispro (Humalog Low) 0 units SC ACHS [facility] PRN Reason: Protocol Last Admin: 12/18/16 06:45 Dose: Not Given Lactobacillus Acidophilus (Bacid Acidophilus) 1 cap PO BID [facility] PRN Reason: Protocol Stop: 12/19/16 23:00 Last Admin: 12/17/16 15:27 Dose: 1 cap Levothyroxine Sodium (Synthroid) 88 mcg PO 0600 [facility] PRN Reason: Protocol Last Admin: 12/18/16 05:17 Dose: 88 mcg Lidocaine (Lidoderm) 1 ea TD DAILY [facility] PRN Reason: Protocol Last Admin: 12/18/16 09:06 Dose: 1 ea Meclizine HCl (Antivert) 25 mg PO TID [facility] PRN Reason: Protocol Last Admin: 12/18/16 09:08 Dose: 25 mg Pantoprazole Sodium (Protonix Ec Tab) 40 mg PO 0600 [facility] PRN Reason: Protocol Last Admin: 12/18/16 05:17 Dose: 40 mg Risperidone (Risperdal Tab) 0.25 mg PO 1000,2200 [facility] Last Admin: 12/18/16 09:02 Dose: 0.25 mg Tramadol HCl (Ultram) 50 mg PO 2200 [facility] Last Admin: 12/17/16 21:35 Dose: 50 mg - Labs Labs: 12/16/16 08:00 12/16/16 08:00 - Constitutional Appears: Non-toxic - Head Exam Head Exam: NORMAL INSPECTION - Neck Exam Neck Exam: absent: Meningismus - Respiratory Exam Respiratory Exam: Decreased Breath Sounds - Cardiovascular Exam Cardiovascular Exam: +S1, +S2 - GI/Abdominal Exam GI & Abdominal Exam: Soft. absent: Tenderness Assessment and Plan - Assessment and Plan (Free Text) Plan: Assessment Leukocytosis, consider related to her B-cell lymphoma, R/O sepsis from pneumonia syncopal episode, etiology to be determined DM HTN hypothyroidism history of diverticulitis GERD degenerative joint disease history of depression and anxiety S/P cholecystectomy S/P hysterectomy history of B-cell lymphoma Plan on Cefepime (day 6) to complete 4-7 days of therapy; cultures are negative; CT abdomen and pelvis did not reveal acute pathology, CT chest showed nodules in the lungs - will d/c antibiotics after today will continue to monitor clinically
--- NOTE | 2016-12-18 16:15 | PN ---
DATE: SUBJECTIVE: The patient is an 86-year-old female, currently being treated on the Transitional Care Unit following a fall with resulting pain and contusions on the right side. The patient has other underlying medical problems. Her current mental status reveals that she is awake, alert, coherent, claims slept much better last night. She had tramadol at bedtime, which seemed to prevent her from waking up due to the pain at night. PHYSICAL EXAMINATION: GENERAL: The patient is awake and oriented x3, coherent, lucid. No mood swings, psychosis or other abnormalities. MENTAL STATUS: She is oriented x3, recognizes me . VITAL SIGNS: Her blood pressure is 120/62, pulse 68, she is afebrile, respirations 16 per minute. She is having no adverse effect from psychotropic medicines. CURRENT MEDICATIONS: Include Antivert 25 mg t.i.d., Levemir 30 mg subQ at bedtime. She is on Humalog protocol, Protonix, Synthroid, Coreg, Ecotrin 81 mg, folate 1 mg, Lidoderm patch, Wellbutrin 150 q. a.m., Maxipime 1 g IVPB, Lipitor 10 mg daily, Pacid, Xanax 0.5 mg b.i.d. and at bedtime, Risperdal 0.25 mg IM and at bedtime, and tramadol as noted 50 mg at bedtime. IMPRESSION: The patient has gait dysfunction with deconditioning. She has bipolar II disorder, in remission. She has status post syncope, hypertension, insulin-dependent diabetes mellitus, vertigo, dyslipidemia, gastroesophageal reflux disease, hyperthyroidism and right-sided abdominal wall musculoskeletal pain. PLAN: Continue above psychotropic medicines. We will continue to monitor her mental status. Toro Carr MD
[2016-12-18] MEDS: Insulin Detemir 100 units/ml Vial (Levemir) SC SCH (21:13)
--- NOTE | 2016-12-18 22:14 | PN ---
DATE OF SERVICE: 12/18/2016 SUBJECTIVE: The patient is seen out of bed to chair in room 319. The patient is sitting up in the chair watching TV. The patient's head examination normocephalic, atraumatic. Overnight nurse's notes were reviewed. The patient was seen with the patient's nurse, Miller. According to the nurse, the patient claims that she is having diarrhea, but according to the patient's nurse, the patient is having normal soft bowel movements. OBJECTIVE: VITAL SIGNS: T-max is 98; pulse 75, 73, 79 per minute; blood pressure 116/66, 125/70, 113/51, 120/62, 113/51; respirations 16-20; O2 sat 97-98%. HEENT: Head examination normocephalic, atraumatic. HEENT examination shows pink conjunctivae. Anicteric sclerae. No oropharyngeal lesion. NECK: No neck rigidity. CHEST: Kyphosis. LUNGS: Shows no rales, crackles or wheezing. CARDIOVASCULAR: S1, S2, regular rhythm. ABDOMEN: Soft, nontender. GENITALIA: Female. RECTAL: Deferred. EXTREMITIES: Shows no pitting, no calf tenderness. No Homans' sign. Positive SANTOS stocking. MUSCULOSKELETAL: Shows a body mass index of 26. NEUROLOGIC: Cranial nerves II-XII grossly intact. Gait examination not tested today. VASCULAR: Palpate pulses. DIAGNOSTICS: 12/18; WBC 16.5, hemoglobin/hematocrit 12.0 and 36.5, platelet 136,000 to 150,000. Lymphocytes; 63% segs. Sodium 143, potassium 4.1, chloride 107, CO2 of 23, anion gap 17, BUN 18, creatinine 0.9. GFR greater than 60. Glucose 229, 327, 205, 200. Calcium 9.1, magnesium 2.0. LFTs are normal. C. diff antigen and toxin is negative. IMPRESSION: 1. Gait dysfunction. 2. Deconditioning. 3. Syncope, etiology undetermined. 4. Status post fall. 5. Type 2 bipolar disorder in remission. 6. Transient hypertension. 7. Leukocytosis. 8. Lymphocytosis. 9. Thrombocytopenia. 10. Normocytic anemia. 11. Insulin-requiring diabetes mellitus with hyperglycemia. 12. Leukocytosis with lymphocytosis. 13. B-cell lymphoma. 14. Hypothyroidism. 15. History of constipation. 16. History of anxiety, depression. 17. Acute exacerbation of vertigo and dizziness. 18. Hypertension. 19. Vitamin B12 deficiency. 20. Insulin-requiring diabetes mellitus. 21. Right abdominal wall contusion secondary to fall. 22. Dyslipidemia. PLAN: At this time, the patient is seen by Psychiatry and Infectious Disease. Their recommendations were noted. The patient is to continue on TCU with physical therapy, occupational therapy, ambulation therapy. CURRENT MEDICATIONS: Antivert 25 mg three times a day, Bacid 1 capsule twice a day, Coreg 6.25 mg twice a day, aspirin 81 mg daily, folic acid 1 mg daily, Humalog low-dose sliding scale coverage a.c. and h.s., Levemir 30 units subcu h.s., Lidoderm 5% patch to the affected area, Lipitor 10 mg daily, cefepime 1 g IV q.8, Protonix 40 mg daily, Risperdal 0.25 mg twice a day, Risperdal 0.25 mg 10:00 a.m. and 10:00 p.m., Synthroid 88 mcg daily, Tylenol 650 q.6 p.r.n., Ultram 50 mg 10:00 p.m., Wellbutrin 150 mg daily in a.m. Xanax 0.5 mg 10:00 a.m., 04:00 p.m., and 10:00 p.m. The patient is on diabetic diet, out of bed, SANTOS stockings, physical therapy, occupational therapy, ambulation therapy, gait therapy ordered. The patient will be continued on the therapeutic intervention as discussed above and physical therapy, occupational therapy, ambulation therapy, gait training. Dictated and electronically signed, not read. Amadou Alston MD
[2016-12-19] MEDS: Pantoprazole 40 mg EC Tab PO SCH (05:41)
[2016-12-19] MEDS: Levothyroxine 88 MCG TAB PO SCH (05:41)
[2016-12-19] MEDS: Cefepime 1gm in NS 100ml 1 GM/100 ML BAG IVPB SCH (05:41)
[2016-12-19] MEDS: Insulin Lispro (humaLOG) LOW Coverage SC SCH ×4 (06:37→22:06)
[2016-12-19] MEDS: buPROPion 150 mg/24 Hours XL Tab PO SCH (09:45)
[2016-12-19] MEDS: Lactobacillus Acidophilus 500 MU Cap PO SCH ×2 (09:45→18:14)
[2016-12-19] MEDS: Lidocaine 5% Patch TD SCH (09:46)
--- NOTE | 2016-12-19 13:16 | PN ---
DATE: 12/19/2016 SUBJECTIVE: The patient is seen in room 319, bed 1. The patient is out of bed to chair. The patient's daughter is at bedside.. Yesterday the patient had soft bowel movement. The patient denies any diarrhea today. PHYSICAL EXAMINATION: VITAL SIGNS: T-max 98.2 to 97.7, heart rate 74 to 86, blood pressure 125/70, 116/66, 158/85, respiration 20, O2 sat 96% to 100%. HEENT: Head normocephalic and atraumatic. Shows pink conjunctivae. Anicteric sclerae. No oropharyngeal lesion. NECK: No neck rigidity. CHEST: Kyphosis. LUNGS: Shows no rales, crackles, or wheezing. CARDIOVASCULAR: S1, S2, regular rhythm. ABDOMEN: Soft, nontender. No costovertebral angle tenderness appreciated, but the patient still complains of right flank pain on movement. MUSCULOSKELETAL: Shows a body mass index of 26. GENITALIA: Female. EXTREMITIES: Shows no pitting edema, no calf pain, no Homans' sign. NEUROLOGIC: The patient is alert, awake, oriented. She is able to stand up without assistance from a sitting position. Motor strength is 5/5. DIAGNOSTICS: None from today. Today's blood pressure highest is 158/85. Clostridium difficile antigen is negative, toxin is negative. IMPRESSION: 1. Gait dysfunction. 2. Deconditioning. 3. Syncope etiology undetermined. 4. Status post fall. 5. Acute exacerbation of vertigo and dizziness. 6. Type 2 bipolar disorder in remission. 7. Transient hypertension. 8. Leukocytosis with lymphocytosis. 9. Thrombocytopenia. 10. Normocytic anemia. 11. Insulin requiring diabetes mellitus. 12. Transient hypertension. 13. History of B-cell lymphoma. 14. Leukocytosis lymphocytosis thrombocytopenia. 15. Insulin-requiring diabetes mellitus with hyperglycemia. 16. Hyperglycemia with uncontrolled insulin requiring diabetes mellitus. PLAN: At this time, the patient is to continue on the transitional care unit stay until days. Current consultation Infectious Disease, and Psychiatry. CURRENT MEDICATIONS: Antivert 25 mg three times a day, Bacid 1 capsule twice a day, Coreg 6.25 mg twice a day, aspirin 81 mg daily, folic acid 1 mg daily, Humalog low-dose sliding scale coverage a.c. and at bedtime. The patient's Levemir is increased to 35 units from 30 because of persistent hyperglycemia and increased Levemir increased to 35 units at bedtime, Lidoderm 5% patch to the right flank area, Lipitor 10 mg daily, Protonix 40 mg daily, Risperdal 0.25 twice a day, Risperdal 0.25 mg twice day, Synthroid 88 mcg daily, Tylenol p.r.n., tramadol 50 mg at 10:00 p.m., Wellbutrin 150 mg a.m., Xanax 0.5 mg 10:00 a.m., 04:00 p.m., 10:00 p.m. consistent carbohydrate diet, out of bed to chair, SANTOS stockings, physical therapy, occupational therapy. The patient seen by physical therapist yesterday. The patient was recommended continued PT. Continue PT with home with physical therapy discharge options. The patient was also explained about the details of her condition, diagnosis, test results, treatment plan. All options explained to the patient and the patient's daughter Myah Garcia who is present in the room at the bedside. Dictated and electronically signed, not read. Amadou Alston MD
--- NOTE | 2016-12-19 13:35 | CP.PCM.PN ---
Subjective - Date & Time of Evaluation Date of Evaluation: 12/19/16 Time of Evaluation: 12:15 - Subjective Subjective: Comfortable, no fevers. Objective - Vital Signs/Intake and Output Vital Signs (last 24 hours): Temp Pulse Resp BP Pulse Ox 98.2 F 74 20 116/66 96 12/18/16 18:00 12/18/16 18:00 12/18/16 18:00 12/18/16 18:00 12/18/16 17:31 Intake and Output: 12/19/16 12/19/16 06:59 18:59 Intake Total 280 Balance 280 - Medications Medications: Current Medications Acetaminophen (Tylenol 325mg Tab) 650 mg PO Q6H PRN; Protocol PRN Reason: Pain, Mild (1-3) Last Admin: 12/17/16 10:51 Dose: 650 mg Alprazolam (Xanax) 0.5 mg PO 1000,1600,2200 [facility] Last Admin: 12/18/16 21:15 Dose: 0.5 mg Aspirin (Ecotrin) 81 mg PO DAILY [facility] PRN Reason: Protocol Last Admin: 12/18/16 09:02 Dose: 81 mg Atorvastatin Calcium (Lipitor) 10 mg PO DIN [facility] Last Admin: 12/18/16 17:24 Dose: 10 mg Bupropion HCl (Wellbutrin Xl) 150 mg PO QAM [facility] PRN Reason: Protocol Last Admin: 12/18/16 09:04 Dose: 150 mg Carvedilol (Coreg) 6.25 mg PO BID [facility] PRN Reason: Protocol Last Admin: 12/18/16 17:22 Dose: 6.25 mg Folic Acid (Folic Acid) 1 mg PO DAILY [facility] PRN Reason: Protocol Last Admin: 12/18/16 09:06 Dose: 1 mg Cefepime HCl (Maxipime 1gm) 1 gm in 100 mls @ 100 mls/hr IVPB Q8 [facility] PRN Reason: Protocol Stop: 12/19/16 14:01 Last Admin: 12/19/16 05:41 Dose: 100 mls/hr Insulin Detemir (Levemir) 30 unit SC HS [facility] PRN Reason: Protocol Last Admin: 12/18/16 21:13 Dose: 30 unit Insulin Human Lispro (Humalog Low) 0 units SC ACHS [facility] PRN Reason: Protocol Last Admin: 12/19/16 06:37 Dose: Not Given Lactobacillus Acidophilus (Bacid Acidophilus) 1 cap PO BID [facility] PRN Reason: Protocol Stop: 12/19/16 23:00 Last Admin: 12/18/16 17:22 Dose: 1 cap Levothyroxine Sodium (Synthroid) 88 mcg PO 0600 [facility] PRN Reason: Protocol Last Admin: 12/19/16 05:41 Dose: 88 mcg Lidocaine (Lidoderm) 1 ea TD DAILY [facility] PRN Reason: Protocol Last Admin: 12/18/16 09:06 Dose: 1 ea Meclizine HCl (Antivert) 25 mg PO TID [facility] PRN Reason: Protocol Last Admin: 12/18/16 17:22 Dose: 25 mg Pantoprazole Sodium (Protonix Ec Tab) 40 mg PO 0600 [facility] PRN Reason: Protocol Last Admin: 12/19/16 05:41 Dose: 40 mg Risperidone (Risperdal Tab) 0.25 mg PO 1000,2200 [facility] Last Admin: 12/18/16 21:14 Dose: 0.25 mg Tramadol HCl (Ultram) 50 mg PO 2200 [facility] Last Admin: 12/18/16 21:15 Dose: 50 mg - Labs Labs: 12/18/16 09:00 12/18/16 09:00 - Constitutional Appears: Non-toxic, No Acute Distress - Head Exam Head Exam: NORMAL INSPECTION - ENT Exam ENT Exam: Mucous Membranes Moist - Neck Exam Neck Exam: absent: Lymphadenopathy, Meningismus - Respiratory Exam Respiratory Exam: Decreased Breath Sounds - Cardiovascular Exam Cardiovascular Exam: +S1, +S2 - GI/Abdominal Exam GI & Abdominal Exam: Soft. absent: Tenderness Assessment and Plan - Assessment and Plan (Free Text) Plan: Assessment Leukocytosis, consider related to her B-cell lymphoma, R/O sepsis from pneumonia S/P treatment syncopal episode, etiology to be determined DM HTN hypothyroidism history of diverticulitis GERD degenerative joint disease history of depression and anxiety S/P cholecystectomy S/P hysterectomy history of B-cell lymphoma Plan S/P 6 days of Cefepime - will monitor off antibiotics since she is at risk for infection
--- NOTE | 2016-12-19 15:50 | PN ---
DATE: SUBJECTIVE: The patient is an 86-year-old female, currently being treated on transitional care unit for debilitation. She recently had an infectious process. She has history of a lymphoma. She has a history of bipolar disorder. She has a history of leukocytosis. She is on IV antibiotics. She had fallen. She has pain on her right hip due to contusion from fall. The patient has a history of hypothyroidism. Currently, on mental status, she is awake and alert. She has uncomfortable nights. She wakes up and has difficulty falling back asleep when she turns due to pain in her right hip. CURRENT MEDICATIONS: Include Antivert, Bacid, Coreg, Ecotrin, folate, Humalog, Levemir, Lipitor, Protonix, Risperdal 0.25 mg a.m. and at bedtime, Synthroid 88 mcg daily, tramadol 50 mg at bedtime, Wellbutrin 150 q. a.m. and Xanax 0.5 mg b.i.d. and at bedtime. LABORATORY DATA: Her white count is 16,500, hemoglobin 12.0, platelet count 136,000. Metabolic profile shows random glucose of 194. PHYSICAL EXAMINATION: VITAL SIGNS: Blood pressure is 158/85, pulse 86, respirations 18 per minute, afebrile. MENTAL STATUS: She is awake, alert, coherent, recognized me surroundings, oriented x3. Mood stable. IMPRESSION: Bipolar type 2 disorder, stable; history of recent fall, contusion to hip; history of B-cell lymphoma. The patient has a history of insulin dependent diabetes mellitus, deconditioning, leukocytosis, lymphocytosis, thrombocytopenia, hypothyroidism, dyslipidemia. PLAN: Continue above psychotropic medicines. We will continue to monitor her mental status. Toro Carr MD
[2016-12-19] MEDS: Insulin Detemir 100 units/ml Vial (Levemir) SC SCH (22:09)
[2016-12-20] MEDS: Levothyroxine 88 MCG TAB PO SCH (06:29)
[2016-12-20] MEDS: Pantoprazole 40 mg EC Tab PO SCH (06:29)
[2016-12-20] MEDS: Insulin Lispro (humaLOG) LOW Coverage SC SCH ×4 (06:30→22:19)
[2016-12-20] MEDS: Lidocaine 5% Patch TD SCH (10:29)
[2016-12-20] MEDS: buPROPion 150 mg/24 Hours XL Tab PO SCH (10:30)
--- NOTE | 2016-12-20 13:09 | CP.PCM.PN ---
Subjective - Date & Time of Evaluation Date of Evaluation: 12/20/16 Time of Evaluation: 11:00 - Subjective Subjective: Comfortable on a chair, no fevers overnight, not in distress. Objective - Vital Signs/Intake and Output Vital Signs (last 24 hours): Temp Pulse Resp BP Pulse Ox 98.1 F 68 16 104/60 95 12/20/16 06:00 12/20/16 06:00 12/20/16 06:00 12/20/16 06:00 12/20/16 06:00 - Medications Medications: Current Medications Acetaminophen (Tylenol 325mg Tab) 650 mg PO Q6H PRN; Protocol PRN Reason: Pain, Mild (1-3) Last Admin: 12/17/16 10:51 Dose: 650 mg Alprazolam (Xanax) 0.5 mg PO 1000,1600,2200 [facility] Last Admin: 12/19/16 21:18 Dose: 0.5 mg Aspirin (Ecotrin) 81 mg PO DAILY LEYLA PRN Reason: Protocol Last Admin: 12/19/16 09:41 Dose: 81 mg Atorvastatin Calcium (Lipitor) 10 mg PO DIN [facility] Last Admin: 12/19/16 17:34 Dose: 10 mg Bupropion HCl (Wellbutrin Xl) 150 mg PO QAM LEYLA PRN Reason: Protocol Last Admin: 12/19/16 09:45 Dose: 150 mg Carvedilol (Coreg) 6.25 mg PO BID LEYLA PRN Reason: Protocol Last Admin: 12/19/16 17:33 Dose: 6.25 mg Folic Acid (Folic Acid) 1 mg PO DAILY LEYLA PRN Reason: Protocol Last Admin: 12/19/16 09:46 Dose: 1 mg Insulin Detemir (Levemir) 35 unit SC HS LEYLA PRN Reason: Protocol Last Admin: 12/19/16 22:09 Dose: Not Given Insulin Human Lispro (Humalog Low) 0 units SC ACHS LEYLA PRN Reason: Protocol Last Admin: 12/20/16 06:30 Dose: 1 units Levothyroxine Sodium (Synthroid) 88 mcg PO 0600 LEYLA PRN Reason: Protocol Last Admin: 12/20/16 06:29 Dose: 88 mcg Lidocaine (Lidoderm) 1 ea TD DAILY LEYLA PRN Reason: Protocol Last Admin: 12/19/16 09:46 Dose: 1 ea Meclizine HCl (Antivert) 25 mg PO TID LEYLA PRN Reason: Protocol Last Admin: 12/19/16 17:32 Dose: 25 mg Pantoprazole Sodium (Protonix Ec Tab) 40 mg PO 0600 LEYLA PRN Reason: Protocol Last Admin: 12/20/16 06:29 Dose: 40 mg Risperidone (Risperdal Tab) 0.25 mg PO 1000,2200 LEYLA Last Admin: 12/19/16 21:19 Dose: 0.25 mg Tramadol HCl (Ultram) 50 mg PO 2200 [facility] Last Admin: 12/19/16 21:19 Dose: 50 mg - Labs Labs: 12/18/16 09:00 12/18/16 09:00 - Constitutional Appears: Non-toxic, No Acute Distress - Head Exam Head Exam: NORMAL INSPECTION - ENT Exam ENT Exam: Mucous Membranes Moist - Neck Exam Neck Exam: absent: Meningismus - Respiratory Exam Respiratory Exam: Decreased Breath Sounds - Cardiovascular Exam Cardiovascular Exam: +S1, +S2 - GI/Abdominal Exam GI & Abdominal Exam: Soft. absent: Tenderness Assessment and Plan - Assessment and Plan (Free Text) Plan: Assessment Leukocytosis, consider related to her B-cell lymphoma, R/O sepsis from pneumonia S/P treatment syncopal episode, etiology to be determined DM HTN hypothyroidism history of diverticulitis GERD degenerative joint disease history of depression and anxiety S/P cholecystectomy S/P hysterectomy history of B-cell lymphoma Plan S/P 6 days of Cefepime - will monitor off antibiotics since she is at risk for nosocomial infections
[2016-12-20] MEDS ORDERED: Influenza Vaccine 60 mcg/0.5 mL SYR (4YR UP) IM ONE (15:53)
[2016-12-20] MEDS: Insulin Detemir 100 units/ml Vial (Levemir) SC SCH (22:19)
--- NOTE | 2016-12-21 03:19 | PN ---
DATE: 12/20/2016 SUBJECTIVE: The patient is seen in room 2319, bed 1. [facility] The patient is sitting up with the patient's daughter at bedside. The patient is alert, awake, and responsive. The patient denies any diarrhea. The patient, according to the nurses' notes, had no complaints of pain. The patient slept overnight without any adverse events documented. The patient was seen by the social media intern regarding discharge planning. I have advised the patient and the patient's daughter to contact the social media intern and discuss with the social media intern regarding all the discharge planning issues and needs, which the patient and the patient's daughter acknowledged and understood. OBJECTIVE: VITAL SIGNS: T-max 98, pulse rate 68, 75 and 73; blood pressure 140/65, 140/67 and 140/67; respirations 18, and O2 sat 97%. HEENT: Head examination; normocephalic and atraumatic. HEENT examination shows pink conjunctivae. Anicteric sclerae. No oropharyngeal lesion. NECK: No neck rigidity. CHEST: Kyphosis. LUNG: Shows no rales, crackles or wheezing. CARDIOVASCULAR: S1, S2, regular rhythm. ABDOMEN: Soft, non protuberant. GENITALIA: Female. RECTAL: Deferred. EXTREMITY: Shows no pitting edema, no calf tenderness, no Homans' sign. NEUROLOGIC: The patient is alert, awake, responsive, is able to move upper lower extremity without assistance. Gait examination is deferred. Body mass index is according to the BMI. BMI of 26. DIAGNOSTICS: None from today. C diff antigen and toxin is negative. IMPRESSION: 1. Deconditioning. 2. Gait dysfunction. 3. Status post fall. 4. Syncope, etiology undetermined. 5. Acute exacerbation of vertigo. 6: Type 2 bipolar disorder. PLAN: At this time, the patient is to continue on the medications as per the MAR. The patient is on meclizine 25 mg 3 times a day, Coreg 6.25 twice a day, Ecotrin 81 mg daily, folic acid 1 mg daily, Humalog low-dose sliding scale coverage a.c. and at bedtime, Levemir 35 units at bedtime, Lidoderm 5% patch to the affected area, Lipitor 10 mg daily, Protonix 40 mg daily, Risperdal 0.25 mg 10:00 a.m. to 10:00 p.m., Ritalin 5 mg twice a day, Synthroid 88 mcg daily, Tylenol 650 q. 6 p.r.n., Ultram 50 mg 10:00 p.m., Wellbutrin 150 mg a.m., Xanax 0.5 mg 10:00 a.m., 04:00 p.m. and 10:00 p.m. The patient is to continue on above therapeutic intervention. The patient will be discharged upon completion of the TCU stay which has been explained to the patient and the patient's daughter by the social media intern and me, which they acknowledged and understand. The patient and the patient's daughter understands and acknowledges that they have to discuss with the social media intern regarding all discharge issues, discharge planning, discharge needs, which I have extensively explained to them also. Dictated and electronically signed not read. Amadou Alston MD
[2016-12-21] MEDS: Pantoprazole 40 mg EC Tab PO SCH (06:05)
[2016-12-21] MEDS: Levothyroxine 88 MCG TAB PO SCH (06:05)
[2016-12-21] MEDS: Insulin Lispro (humaLOG) LOW Coverage SC SCH ×4 (06:52→22:00)
[2016-12-21] MEDS: Lidocaine 5% Patch TD SCH (09:09)
[2016-12-21] MEDS: buPROPion 150 mg/24 Hours XL Tab PO SCH (09:11)
[2016-12-21 17:47] VITALS: RESP 18
--- NOTE | 2016-12-21 19:17 | PN ---
DATE: 12/21/2016 SUBJECTIVE: The patient seen early this morning. No acute distress. The patient seen in room 319. No nausea, no vomiting and she is doing well. PHYSICAL EXAMINATION: GENERAL: The patient is in bed with a temperature of 98, blood pressure is 120/70, respiratory rate of 16. HEENT: Examination is unremarkable. NECK: Supple. LUNGS: Have decreased breath sounds. HEART: Exam is normal S1, S2. ABDOMEN: [place] is soft, nontender. LABORATORY DATA: Examination reveals a white count of 16,500 and hemoglobin of 12 and platelets of 136. Chemistries are noted with a BUN of 18, creatinine of 0.8. Microbiology reveals C. diff is negative antigen and negative toxin. ASSESSMENT AND PLAN: An 86-year-old female with leukocytosis, consider related to her B-cell lymphoma and status post sepsis from her pneumonia and treatment and syncopal episode, etiology to be determined in a patient with diabetes, hypertension, hypothyroidism, history of diverticulitis and gastroesophageal reflux disease and status post treatment 6 days of cefepime, currently now off of antibiotics. Review of the orders confirms the patient to be off of antibiotics. The patient is at risk for developing nosocomial infections and the last white count on the patient is reported to be at 16,500 on 12/18/2016, felt to be secondary to her lymphoma. Surya Lai MD
--- NOTE | 2016-12-21 21:23 | PN ---
DATE: 12/21/2016 SUBJECTIVE: The patient is seen, out of bed to recliner, lying in the recliner and sleeping. The overnight nurse's notes were reviewed. The patient did not have any adverse events documented. No diarrhea noted. PHYSICAL EXAMINATION: VITAL SIGNS: T-max 97.5; pulse 62-75 beats per minute; blood pressure 107/62, 131/61; O2 sat ranging between 92-96%; respirations 14-20. HEAD: Examination is normocephalic and atraumatic. HEENT: Examination shows pinkish conjunctivae. Anicteric sclerae. No oropharyngeal lesion. No neck rigidity. CHEST: Examination is kyphosis. LUNGS: Examination shows no rales, crackles or wheezing. CARDIOVASCULAR: Examination S1, S2, regular rhythm. ABDOMEN: Soft, nontender. No guarding. No rigidity. No rebound tenderness. No costovertebral angle tenderness. GENITALIA: Female. RECTAL: Examination is deferred. EXTREMITIES: Show positive SANTOS stockings. MUSCULOSKELETAL: Examination shows a body mass index of 26. NEUROLOGIC: The patient is alert, awake, responsive, is able to move upper and lower extremities without assistance. Gait examination is not tested. VASCULAR: Palpable pulses. DIAGNOSTICS: None. IMPRESSION: 1. Deconditioning. 2. Gait dysfunction. 3. Syncope, etiology undetermined. 4. Recurrent falls. 5. Acute exacerbation of vertigo and dizziness. 6. 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 7. Vertigo. 8. Hypertension. 9. Hyperlipidemia. 10. Gastroesophageal reflux. 11. Type 2 bipolar disorder. 12. Hypothyroidism. 13. Anxiety disorder. 14. Depression. PLAN: At this time, the patient is to be continued on TCU stay, until approved number of days. The patient's current medications; Antivert 25 mg three times a day, Coreg 6.25 mg twice a day, Ecotrin 81 mg daily, folic acid 1 mg daily, Humalog low-dose sliding scale coverage a.c. and at bedtime, Levemir increased to 35 units at bedtime, Lidoderm 5% patch to the affected area daily, Lipitor 10 mg daily, Protonix 40 mg once or twice a day, Lipitor 10 mg daily, Risperdal 0.25 mg 10:00 a.m. and 10:00 p.m., Ritalin 5 mg twice a day, Synthroid 88 mcg daily, Tylenol 650 q. 6 p.r.n., Ultram 50 mg at bedtime at 10:00 p.m., Wellbutrin 150 mg a.m., and Xanax 0.5 mg 10:00 a.m., 4:00 p.m., and 10:00 p.m. The patient, at present, will be continued on the above therapeutic intervention. The patient is being scheduled for discharge tomorrow after completion of the U approved stays. The patient's medications has been electronically transmitted to the [facility]. The patient's Levemir has been increased to 35 units at bedtime. The patient is also given prescription for Ultram. The patient's condition, diagnosis, treatment plan, diagnostic test results, recommendation by all physicians involved in the care of the patient has been explained to the patient and the patient's daughter, Myah Garcia during this hospitalization and the acute care hospitalization. All of the above has been discussed and explained to the patient and the patient's daughter in layman's language. All questions concerned answered, which they acknowledged understand. Dictated and electronically signed, not read. Signing off; Amadou Alston MD
[2016-12-21] MEDS: Insulin Detemir 100 units/ml Vial (Levemir) SC SCH (22:01)
[2016-12-22] MEDS: Levothyroxine 88 MCG TAB PO SCH (05:57)
[2016-12-22] MEDS: Pantoprazole 40 mg EC Tab PO SCH (05:57)
[2016-12-22] MEDS: Insulin Lispro (humaLOG) LOW Coverage SC SCH ×2 (06:59→12:05)
[2016-12-22] MEDS: Lidocaine 5% Patch TD SCH (10:32)
[2016-12-22] MEDS: buPROPion 150 mg/24 Hours XL Tab PO SCH (10:32)
[2016-12-22 10:37] VITALS: BP 132/72
[2016-12-22 10:58] VITALS: PULSE 76; TEMP 97.5; O2SAT 97
--- NOTE | 2016-12-22 17:41 | PN ---
DATE: 12/22/2016 SUBJECTIVE: The patient was seen early this morning, in room 319. No fevers and no chills. She was doing well. PHYSICAL EXAMINATION: VITAL SIGNS: Temperature is 97, blood pressure is 130/70, respiratory rate of 18. HEENT: Unremarkable. NECK: Supple. LUNGS: Have decreased breath sounds. HEART: Normal S1, S2. ABDOMEN: Soft and nontender. LABORATORY EXAMINATION: Reveals the patient to have a white count of 16,500 and chemistries are noted. ASSESSMENT AND PLAN: This is an 86-year-old female with leukocytosis related to the B-cell lymphoma, status post sepsis from pneumonia and treatment of syncopal episode and the patient with diabetes, hypertension, hypothyroidism, history of diverticulitis, gastroesophageal reflux disease, history of , status post treatment 6 days of cefepime with leukocytosis, off of antibiotics. Surya Lai MD
--- NOTE | 2016-12-23 09:01 | PN ---
DATE: 12/20/2016 SUBJECTIVE: The patient is an 86-year-old female, currently being treated on transitional care unit for debilitation and other medical problems. I spoke with the patient today and I spoke with her daughter today. The patient apparently will be discharged in the next 24 to 48 hours. I have discussed with the daughter outpatient psychiatric treatment. Currently, her mental status reveals she is awake, alert, slightly uncomfortable from right hip pain following a fall. The patient currently on multiple psychotropic medicines without adverse effect. The patient is oriented x3, aware of her surrounding. She has mild memory impairment. The patient currently receiving Ritalin 5 mg b.i.d. She is receiving risperidone 0.25 mg in a.m. and at bedtime. She is receiving Protonix 40 mg daily at a.c, atorvastatin 10 mg daily, insulin 35 units subcu, Ecotrin 81 mg, meclizine 25 mg t.i.d., Xanax 0.5 mg b.i.d. and at bedtime, Wellbutrin 150 mg q. a.m., tramadol 50 mg at bedtime. LABORATORY DATA: The patient's laboratory data to report, blood sugar of 174. PHYSICAL EXAMINATION VITAL SIGNS: Blood pressure 140/67, pulse 68, respirations 16 per minute and afebrile. IMPRESSION: The patient has bipolar disorder type 2 and mostly in remission. She has gait dysfunction. She has a recent fall. She has vertigo. She has leukocytosis. She is on IV antibiotics. History of hypothyroidism, hypertension, diabetes mellitus, degenerative joint disease. The patient is stable from my point of view. PLAN: She can be discharged medically if necessary and I will follow her as an outpatient and we will also order for tramadol 50 mg at bedtime for 30 days. Toro Carr MD
--- NOTE | 2016-12-23 09:30 | DS ---
FINAL PROGRESS NOTE AND DISCHARGE SUMMARY The patient is discharged from transitional care unit room #319. The patient has stayed in transfer care unit in room #319. The patient's overnight nurse's notes were reviewed. No adverse events documented. PHYSICAL EXAMINATION: VITAL SIGNS: T-max 97.6, pulse rate 69-76, blood pressure 132/72 and room air O2 sat 93%-97%. HEENT: Head: Normocephalic, atraumatic. HEENT examination shows pinkish conjunctivae. Anicteric sclerae. No oropharyngeal lesion. NECK: No neck rigidity. CHEST: Kyphosis. LUNG: Shows no rales, crackles or wheezing. CARDIOVASCULAR: S1, S2, regular rhythm. ABDOMEN: Completely soft. Positive bowel sounds. Nontender. No costovertebral angle tenderness. No right and left upper and lower quadrant tenderness. No rebound tenderness. No guarding. No rigidity. GENITALIA: Female. RECTAL: Deferred. EXTREMITIES: Shows no pitting edema, no calf tenderness, no Homans' sign. NEUROLOGIC: The patient is alert, awake, oriented x3, is able to move upper and lower extremity without assistance. GAIT: Not tested. VASCULAR: Palpate pulses. MUSCULOSKELETAL: Shows as per the body mass index. DIAGNOSTICS: None. The patient seen by Infectious Disease. The patient is off IV antibiotics. The patient seen by Psychiatry, recommendations noted. FINAL IMPRESSION AND DISCHARGE DIAGNOSES 1. Deconditioning. 2. Gait dysfunction. 3. Status post syncope, etiology undetermined. 4. Recurrent falls. 5. Acute exacerbation of vertigo and dizziness. 6. History of hypotension with transient hypertension. 7. Leukocytosis. 8. B-cell lymphoma. 9. Lymphocytosis. 10. Normocytic anemia. 11. Insulin-requiring diabetes mellitus. 12. Hypercholesterolemia. 13. Hypothyroidism. 14. Hypovitaminosis D. 15. Vitamin B12 deficiency. 16. Anxiety. 17. Depression. 18. Type 2 bipolar disorder. 19. Right sided abdominal wall muscular contusion secondary to fall. PLAN: At this time, the patient is to be discharged home as the patient has completed acute transitional care unit stay. DISCHARGE MEDICATIONS: As per updated ambulatory orders. The patient's Levemir was increased to 35 units at bedtime, which was revised and sent to the pharmacy. The patient is also given prescription for Ultram 50 mg at 10:00 p.m. The patient is also given prescription of Lidoderm 5% patch to the affected area. All the other medications stays unchanged. DISCHARGE DISPOSITION: The patient is to be discharged home. DISCHARGE FOLLOWUP: With Dr. Alston within 1 week, Dr. Carr within 1 week. The patient was given copies of diet upon discharge. The patient was given prescription copies upon discharge. The patient's other medicines were electronically summated to the patient's pharmacy, [facility]. Time spent in the entire discharge process more than 45 minutes. Dictated and electronically signed, not read. Amadou Alston MD
== END 2016-12-22 13:00 | disposition home or self-care (01) | DRG 841 ==
LOC: TRCU 17:31
PROVIDERS: ADMIT Internal Medicine; ATTEND Internal Medicine
PROC: F07Z9FZ Gait Training/Functional Ambulation Treatment using Assistive, Adaptive, Supportive or Protective Equipment (ICD-10-PCS; principal; 2016-12-15)
PROC: F07M6ZZ Therapeutic Exercise Treatment of Musculoskeletal System - Whole Body (ICD-10-PCS; 2016-12-15)
PROC: F08Z1ZZ Dressing Techniques Treatment (ICD-10-PCS; 2016-12-15)
PROC: F08Z2ZZ Grooming/Personal Hygiene Treatment (ICD-10-PCS; 2016-12-15)
PROC: F08Z0ZZ Bathing/Showering Techniques Treatment (ICD-10-PCS; 2016-12-15)
DX: C85.10 Unspecified B-cell lymphoma, unspecified site (principal); F31.81 Bipolar II disorder; E11.65 Type 2 diabetes mellitus with hyperglycemia; E11.40 Type 2 diabetes mellitus with diabetic neuropathy, unspecified; D69.6 Thrombocytopenia, unspecified; E05.90 Thyrotoxicosis, unspecified without thyrotoxic crisis or storm; D64.9 Anemia, unspecified; I10 Essential (primary) hypertension; S30.1XXA Contusion of abdominal wall, initial encounter; D72.820 Lymphocytosis (symptomatic); E03.9 Hypothyroidism, unspecified; E53.8 Deficiency of other specified B group vitamins; E78.5 Hyperlipidemia, unspecified; F31.70 Bipolar disorder, currently in remission, most recent episode unspecified; F41.9 Anxiety disorder, unspecified; K21.9 Gastro-esophageal reflux disease without esophagitis; K59.00 Constipation, unspecified; M19.90 Unspecified osteoarthritis, unspecified site; R29.6 Repeated falls; Z79.4 Long term (current) use of insulin; Z79.899 Other long term (current) drug therapy; Z90.49 Acquired absence of other specified parts of digestive tract; Z90.710 Acquired absence of both cervix and uterus; R55 Syncope and collapse; Z68.26 Body mass index [BMI] 26.0-26.9, adult; R26.9 Unspecified abnormalities of gait and mobility; R53.81 Other malaise; R42 Dizziness and giddiness; E79.0 Hyperuricemia without signs of inflammatory arthritis and tophaceous disease; Z87.19 Personal history of other diseases of the digestive system; F32.89 Other specified depressive episodes